=== PATIENT | female | born 1980 | race Caucasian/White ===

== ENCOUNTER → 2023-03-12 | Outpatient (CLI) | payer OTHER, SELFPAY ==
[2023-03-12 12:32] LABS: Absolute Lymphocyte Count 1.54 X10^3/uL (0.83-4.51); Absolute Neutrophil Count 4.1 X10^3/uL (2.0-7.7); Basophil# 0.02 X10^3/uL; Basophil% 0.3 % (0-1); Eosinophil# 0.05 X10^3/uL; Eosinophils% 0.8 % (0-5); Hematocrit 39.9 % (37-47); Hemoglobin 11.8 g/dL (12.0-15.0); Lymphocyte # 1.54 X10^3/ul (0.83-4.51); Lymphocyte % 25.2 % (19-41); Mean Corp Hgb Conc 29.6 g/dL (32-36); Mean Corpuscular Hgb 23.7 pg (27.0-32.0); Mean Corpuscular Volume 80.1 fL (81-99); Mean Platelet Vol. 11.1 fl (6.2-12.0); Monocyte# 0.34 X10^3/uL; Monocyte% 5.6 % (0-10); NRBC Flagged by Analyzer 0 % (0-5); Neutrophil # 4.13 X10^3/uL (2.7-7.7); Neutrophil % 67.8 % (47-70); Platelet Count 294 K/mm3 (150-450); RBC Distribution Width CV 14.1 % (11.6-14.6); RBC Distribution Width SD 40.5 fl (35.1-43.9); Red Blood Count 4.98 M/mm3 (4.2-5.4); White Blood Count 6.1 K/mm3 (4.4-11.0)
[2023-03-12 12:49] LABS: Erythrocyte Sedimentation Rate 3 mm/hr (0-30)
[2023-03-12 13:34] LABS: Hemoglobin A1c 5.1 % (3.8-5.6)
[2023-03-12 13:43] LABS: AST(SGOT) 12 U/L (15-37); Alanine Aminotransfer ALT/SGPT 20 U/L (13-56); Albumin, Serum 3.6 g/dL (3.2-5.0); Alkaline Phosphatase 70 U/L (45-117); Amylase 87 U/L (25-115); Anion Gap 4 (5-15); BUN 9 mg/dL (7-18); BUN/Creat Ratio 10.8 RATIO (10-20); CRP 7.47 mg/L (0.0-3.0); Calcium,Total 8.7 mg/dL (8.5-10.1); Chloride 108 mmol/L (98-107); Creatinine, Serum 0.84 mg/dL (0.55-1.02); EST Glomerular Filtration Rate 80 mL/min (>60); Est Glom Filt Rate - Afr Amer 97 mL/min (>60); Globulin 3.6 g/dL (2.2-4.2); Glucose 106 mg/dL (74-106); Lipase 38 U/L (13-75); Potassium 3.7 mmol/L (3.5-5.1); Protein, Total 7.2 g/dL (6.4-8.2); Sodium Level 138 mmol/L (136-145); Thyroid Stim Hormone (TSH) 0.78 uIU/mL (0.358-3.74)
[2023-03-13 15:08] LABS: Anti-Centromere B Ab <0.2 AI (0.0-0.9); Anti-Chromatin <0.2 AI (0.0-0.9); Anti-Jo <0.2 AI (0.0-0.9); Anti-Scleroderma-70 AB <0.2 AI (0.0-0.9); Anti-dsDNA Ab <1 IU/mL (0-9); RNP Ab <0.2 AI (0.0-0.9); SJOGREN'S Anti-SS-A test 0.2 AI (0.0-0.9); SJOGREN'S Anti-SS-B test < 0.2 AI (0.0-0.9); Smith Ab <0.2 AI (0.0-0.9)
[2023-03-15 21:07] LABS: Albumin 3.9 g/dL (2.9-4.4); Alpha-1-Globulins 0.3 g/dL (0.0-0.4); Alpha-2-Globulins 0.7 g/dL (0.4-1.0); Cytoplasmic Ab (C-ANCA) <1:20 titer (Neg:<1:20); Endomysial Antibody IgA Negative (Negative); Gamma Globulin 0.9 g/dL (0.4-1.8); Immunoglobulin A 127 mg/dL (87-352); Immunoglobulin E 4 IU/mL (6-495); Immunoglobulin G 950 mg/dL (586-1602); Immunoglobulin M 48 mg/dL (26-217); PROEL- TOTAL PROTEIN 6.7 g/dL (6.0-8.5); Perinuclear Ab (P-ANCA) <1:20 titer (Neg:<1:20); t-Transglutaminase IgA <2 U/mL (0-3)
== END | disposition home or self-care (01) ==
PROVIDERS: PCP Physician Assistant; Visit Provider Internal Medicine Gastroenterology
DX: R10.9 Unspecified abdominal pain (principal); K21.9 Gastro-esophageal reflux disease without esophagitis
CPT/HCPCS: 36415; 80053; 82150; 82784; 82785; 83036; 83516; 83690; 84165; 84443; 85025; 85652; 86140; 86225; 86235; 86255; 86256; 86334

== ENCOUNTER 2023-05-21 06:48 | Day surgery (SDC) | payer OTHER, SELFPAY ==
[2023-05-21 07:14] VITALS: BP 99/54; PULSE 57; RESP 16; TEMP 36.1; O2SAT 95; BMI 33.7
[2023-05-21] MEDS: Lactated Ringers 1,000 ML 15 ML IV (07:17)
[2023-05-21 07:18] LABS: Internal QC Validated? YES +Cl - CLEAR BKGD; Pregnancy, Urine Negative Negative; Record Kit Lot#,Urine Preg HCG0000667200
--- NOTE | 2023-05-21 07:45 | EGD_PTH ---
PATIENT: SAMANTA HUNT LOC: [facility] U#:[id number] AGE/SX: 43/F ROOM: RE05/21/[address]: Dr. Toro Nugent DO : 1980 BED: DIS: 05/21/2023 SPEC #: [id number] RECD: 05/21/23 11:03 STATUS: JEISON RAISA #: [id number] LAUREANO: 05/21/23 07:[address]: Toro Nugent DEPT: SURGICAL PATHOLOGY RECD BY: Marisela Blanco ENTERED: 05/21/23 12:02 SP TYPE: EGD BIOPSY OT DR: JAVAN Delgado Tissues: A - Duodenum, NOS B - Esophagus, NOS Procedures: Special Stain Group II Surgery Specimen Level IV Alcian Blue/PAS (control) HEADER OPERATION: EGD, PH probe with biopsy PRE-OP DIAGNOSIS: Abdominal pain, GERD, TISSUE SUBMITTED: A - Duodenum biopsy, B - Distal esophagus biopsy MICROSCOPIC DIAGNOSIS A. Duodenum, biopsy: A fragment of duodenal mucosa, no pathologic diagnosis. B. Distal esophagus, biopsy: Fragments of gastroesophageal mucosa with chronic inflammation. Intestinal metaplasia (goblet cell metaplasia) not identified. See comment. JAIMIE:los 05/22/2023 COMMENT B. Alcian blue/PAS stain with matched control is used in the evaluation of the specimen. MICROSCOPIC DESCRIPTION Slides are reviewed. GROSS DESCRIPTION A - Received in fixative is one container labeled with the patient's name and designated duodenum biopsy. The specimen consists of one irregular fragment of light beyer soft tissue that measures 0.4 x 0.3 x 0.1 cm. The specimen is totally submitted in one cassette. B - Received in fixative is one container labeled with the patient's name and designated distal esophagus biopsy. The specimen consists of multiple irregular fragments of light beyer soft tissue that in aggregate measure 1.2 x 0.3 x 0.1 cm. The specimen is totally submitted in one cassette. / JAIMIE:los 05/21/2023 TC:3 CPT: 32924 x2, 22379
--- NOTE | 2023-05-21 07:52 | PCM.HP.BLA ---
History and Physical Date of Admission: 05/21/23 43 F who presents to the office today for initial consult. PMH HPV+, anxiety/depression, arthritis/polyarthralgia/fibromyalgia. GI Hx Kolb?s esophagus, GERD, hiatal hernia, abdominal bloating? PCP OV 10.07.22 noting history of Kolb?s esophagus. PPI continues but is symptomatic if dose missed.? ? OV 03.12.23 Pt states life long hx of GERD. Sx increased in 2020. Cholecystectomy mid 2020. EGD 08.20.21 at [facility] noting barretts and moderate HH. Has changed diet and was most recently put on Pantoprazole 40mg BID. Helpful for stomach cramps but still continues to have HB with reflux. Bowels are normal and consistent. Exam Const General: cooperative and comfortable Nutritional Appearance: average body habitus and well nourished HENNH Head: normal to inspection Ears: hearing grossly normal bilaterally Nose: external nose normal Face and sinus: normal facial exam Mouth: oral mucosae normal Throat: posterior oropharynx normal Eyes General: appearance normal, both eyes and all related structures Neck Neck: normal visual inspection Chest Chest palpation & inspection: normal inspection of the chest and normal palpation of entire chest wall Resp Effort & Inspection: normal respiratory effort Auscultation: Bilateral: Clear to Auscultation Cardio Palpation: normal PMI Rate: regular rate Rhythm: regular rhythm GI Inspection: normal to inspection Auscultation: normal bowel sounds Percussion: normal to percussion Palpation: no hepatosplenomegaly Skin General: no rashes or lesions noted Neuro General: patient alert Extrem General: normal to inspection Psych Affect: normal affect Quality Reporting Tobacco Screening ([facility] 138) Smoking Status: Current every day smoker Assessment and Plan Assessment and Plan (1) Abdominal pain: Status: Acute Qualifiers: Abdominal location: epigastric Qualified Code(s): R10.13 - Epigastric pain (2) GERD (gastroesophageal reflux disease): Status: Acute Qualifiers: Esophagitis presence: without esophagitis Qualified Code(s): K21.9 - Gastro-esophageal reflux disease without esophagitis Plan: 43-year-old with longstanding history of gastroesophageal reflux disease diagnosed at 16 years old. She has had refractory disease to 40 mg of omeprazole twice a day and currently pantoprazole 40 mg twice a day and regarding her reflux disease. 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 She was also noted did have a small sliding hiatal hernia without any underlying Osmar's erosions, Nallely-Freedman tear or any motility problems associated with that. She said that she had an upper GI study that also showed a hiatal hernia. On her upper endoscopy there was no note of inflammation, portal gastropathy, gastric antral vascular ectasia or H. pylori infection in her stomach. There was also no note of villous atrophy in the small bowel or any signs of eosinophilia in the stomach, duodenum or esophagus. She does smoke cigarettes, but has been cutting down and she is also been avoiding spicy foods, alcohol, chocolate and coffee. She gets intermittent right upper quadrant pain and she is postcholecystectomy. This also comes along with bloating. The differential diagnosis for her symptoms does include nonerosive reflux disease, eosinophilic esophagitis, irritable bowel syndrome, celiac disease, hypergastrinemia secondary to PPI therapy. She should undergo an upper endoscopy with [place] pH study, possible esophageal motility and a gastric emptying study. She should also get a HIDA scan to see if there is any signs of bile acid reflux. She will get blood work today to see if there is any underlying autoimmune disease contributing to poor motility of the upper GI tract and to see if there is any associated food allergy. Orders: Orders Allergen, Food Profile 14 Today K21.9 - Gastro-esophageal reflux disease without esophagitis, R10.9 - Unspecified abdominal pain JACKI + Protein Elect, Serum Today K21.9 - Gastro-esophageal reflux disease without esophagitis, R10.9 - Unspecified abdominal pain CBC W/Diff, Automated Today K21.9 - Gastro-esophageal reflux disease without esophagitis, R10.9 - Unspecified abdominal pain ANCA Today K21.9 - Gastro-esophageal reflux disease without esophagitis, R10.9 - Unspecified abdominal pain Celiac Disease Profile Today K21.9 - Gastro-esophageal reflux disease without esophagitis, R10.9 - Unspecified abdominal pain CRP Today K21.9 - Gastro-esophageal reflux disease without esophagitis, R10.9 - Unspecified abdominal pain Erythrocyte Sed Rate Today K21.9 - Gastro-esophageal reflux disease without esophagitis, R10.9 - Unspecified abdominal pain Immunoglobulin A Today K21.9 - Gastro-esophageal reflux disease without esophagitis, R10.9 - Unspecified abdominal pain Immunoglobulin E Today K21.9 - Gastro-esophageal reflux disease without esophagitis, R10.9 - Unspecified abdominal pain Immunoglobulin G Today K21.9 - Gastro-esophageal reflux disease without esophagitis, R10.9 - Unspecified abdominal pain Immunoglobulin M Today K21.9 - Gastro-esophageal reflux disease without esophagitis, R10.9 - Unspecified abdominal pain Comprehensive Metabolic Profil Today K21.9 - Gastro-esophageal reflux disease without esophagitis, R10.9 - Unspecified abdominal pain Amylase Today K21.9 - Gastro-esophageal reflux disease without esophagitis, R10.9 - Unspecified abdominal pain Lipase Today K21.9 - Gastro-esophageal reflux disease without esophagitis, R10.9 - Unspecified abdominal pain Hemoglobin A1c Today K21.9 - Gastro-esophageal reflux disease without esophagitis, R10.9 - Unspecified abdominal pain JAS Comprehensive Panel Today K21.9 - Gastro-esophageal reflux disease without esophagitis, R10.9 - Unspecified abdominal pain Thyroid Stim Hormone (TSH) Today K21.9 - Gastro-esophageal reflux disease without esophagitis, R10.9 - Unspecified abdominal pain Gastric Emptying Study Today K21.9 - Gastro-esophageal reflux disease without esophagitis, R10.9 - Unspecified abdominal pain Hepatobilliary Imaging Today K21.9 - Gastro-esophageal reflux disease without esophagitis, R10.9 - Unspecified abdominal pain I have examined the patient and the H&P has been reviewed. There are no clinical changes since date of exam.
[2023-05-21 08:15] VITALS: BP 99/54; PULSE 55; RESP 18; TEMP 36.4; O2SAT 98
[2023-05-21 08:20] VITALS: BP 105/61; BP 99/54; PULSE 50; RESP 16; O2SAT 99
--- NOTE | 2023-05-21 08:21 | OP.CCLET_ITS ---
05/21/2023 Jelena Durham Re : Upper GI endoscopy procedure for Kerrie Durham This procedure was performed on May. My impressions and recommendations are as follows: Impressions : - Z-line irregular, 38 cm from the incisors. Biopsied. - A few gastric polyps. - Chronic duodenitis. Biopsied. - The AMAYA pH capsule was positioned 38 cm from the incisors, which was 6 cm proximal to the GE junction. Recommendations : - Discharge patient to home. - Resume previous diet. - Continue present medications. - Await pathology results. My findings are described in the full procedure note, which is enclosed. If I can be of further assistance, please feel free to contact me at . Sincerely, Toro Nugent, 05/21/2023 8:21:02 AM This report has been signed electronically.
--- NOTE | 2023-05-21 08:21 | OP.EGD_ITS ---
Patient Name: Kerrie Quiroz Procedure Date: 05/21/2023 7:58 AM Date of : 1980 Age: 43 Procedure: Upper GI endoscopy Indications: Epigastric abdominal pain, Heartburn Providers: Toro Nugent DO Referring MD: Jelena Durham Medicines: Monitored Anesthesia Care Patient Profile: Patient has symptoms of chronic abdominal cramping, chronic abdominal distention, chronic chest pain and chronic heartburn. Complications: No immediate complications. Procedure: Pre-Anesthesia Assessment: - Prior to the procedure, a History and Physical was performed, and patient medications and allergies were reviewed. The patient is competent. The risks and benefits of the procedure and the sedation options and risks were discussed with the patient. All questions were answered and informed consent was obtained. Patient identification and proposed procedure were verified by the physician in the pre-procedure area. Mental Status Examination: alert and oriented. Airway Examination: normal oropharyngeal airway and neck mobility. Prophylactic Antibiotics: The patient requires prophylactic antibiotics. Prior Anticoagulants: The patient has taken no anticoagulant or antiplatelet agents. ASA Grade Assessment: II - A patient with mild systemic disease. After reviewing the risks and benefits, the patient was deemed in satisfactory condition to undergo the procedure. The anesthesia plan was to use monitored anesthesia care (MAC). Immediately prior to administration of medications, the patient was re-assessed for adequacy to receive sedatives. The heart rate, respiratory rate, oxygen saturations, blood pressure, adequacy of pulmonary ventilation, and response to care were monitored throughout the procedure. The physical status of the patient was re-assessed after the procedure. After obtaining informed consent, the endoscope was passed under direct vision. Throughout the procedure, the patient's blood pressure, pulse, and oxygen saturations were monitored continuously. The Endoscope was introduced through the mouth, and advanced to the second part of duodenum. The upper GI endoscopy was accomplished without difficulty. The patient tolerated the procedure well. Scope In: 8:01:53 AM Scope Out: 8:09:25 AM Total Procedure Duration Time 0 hours 7 minutes 32 seconds Findings: The Z-line was irregular and was found 38 cm from the incisors. Biopsies were taken with a cold forceps for histology. Verification of patient identification for the specimen was done. The AMAYA capsule with delivery system was introduced through the mouth and advanced into the esophagus, such that the AMAYA pH capsule was positioned 38 cm from the incisors, which was 6 cm proximal to the GE junction. Suction was applied to the well of the AMAYA pH capsule to suck in the adjacent mucosa of the esophagus using the external vacuum pump set at a minimum vacuum pressure of 550 mmHg for 30 seconds. The AMAYA pH capsule was then deployed by depressing the plunger on top of the handle to advance the locking pin into the mucosa, thereby attaching the capsule to the esophagus. The plunger was then rotated a quarter turn clockwise to release the capsule from the delivery system. The delivery system was then withdrawn. Endoscopy was utilized for probe placement and diagnostic evaluation. A few 5 mm hyperplastic polyps with no stigmata of recent bleeding were found in the gastric fundus. Patchy moderate inflammation characterized by congestion (edema) and erythema was found in the duodenal bulb and in the first portion of the duodenum. Biopsies were taken with a cold forceps for histology. Verification of patient identification for the specimen was done. Estimated blood loss was minimal. Impression: - Z-line irregular, 38 cm from the incisors. Biopsied. - A few gastric polyps. - Chronic duodenitis. Biopsied. - The AMAYA pH capsule was positioned 38 cm from the incisors, which was 6 cm proximal to the GE junction. Recommendation: - Discharge patient to home. - Resume previous diet. - Continue present medications. - Await pathology results. Procedure Code(s): --- Professional --- 94032, Esophagogastroduodenoscopy, flexible, transoral; with biopsy, single or multiple CPT copyright 2021 [employer]. All rights reserved. The codes documented in this report are preliminary and upon human service coordinator review may be revised to meet current compliance requirements. Toro Nugent DO 05/21/2023 8:21:02 AM This report has been signed electronically. Number of Addenda: 0 Note Initiated On: 05/21/2023 7:58 AM
[2023-05-21 08:25] VITALS: BP 99/54; PULSE 51; RESP 18; TEMP 36.4; O2SAT 100
[2023-05-21 08:46] VITALS: BP 99/54
== END 2023-05-21 08:53 | disposition home or self-care (01) ==
LOC: EN 06:48 → AC 06:50
PROVIDERS: Anesthesiology; PCP Physician Assistant; Referring Provider Physician Assistant; Visit Provider Internal Medicine Gastroenterology
PROC: (CPT 43235; principal; 2023-05-21 07:40)
DX: K21.9 Gastro-esophageal reflux disease without esophagitis (principal); K29.80 Duodenitis without bleeding; K31.7 Polyp of stomach and duodenum; K22.70 Barrett's esophagus without dysplasia; K44.9 Diaphragmatic hernia without obstruction or gangrene; F17.210 Nicotine dependence, cigarettes, uncomplicated; G89.29 Other chronic pain; Z90.49 Acquired absence of other specified parts of digestive tract; Z79.899 Other long term (current) drug therapy
CPT/HCPCS: 43239; 91035; 81025; 88305; 88313; J7120; J2405

== ENCOUNTER → 2023-09-10 | Outpatient (CLI) | payer OTHER, SELFPAY ==
[2023-09-10 10:22] LABS: Mucous, Urine 0 SEEN /hpf (<or=2+); Red Blood Cells-Urine 0 SEEN /hpf (0-5)
[2023-09-10 10:47] LABS: Color, Urine Yellow (Yellow); Glucose, Dipstick Normal (Normal); Ketone-Dipstick Negative (Negative); Leukocyte Esterase-Dipstick Negative /ul (Negative); Nitrite-Dipstick Negative (Negative); Occult Blood-Urine Negative /ul (Negative); Protein-Dipstick Negative (Negative); Urine Bilirubin Dipstick Negative (Negative); Urine Clarity Clear (Clear); Urine Urobilinogen Normal (Normal); Urine pH 6.5 (5.0 - 8.0)
[2023-09-10 10:57] LABS: Bacteria 1+ /hpf (None Seen); Squamous Epithelial Cells - UA 0-5 SEEN /hpf (5-10); White Blood Cells 0-5 SEEN /hpf (0-5)
[2023-09-10 11:19] LABS: PTHIN 44.4 pg/mL (18.4-80.1)
[2023-09-10 12:14] LABS: CPK Total, Creatine Kinase 77 U/L (26-192); CRP 6.16 mg/L (0.0-3.0); Thyroid Stim Hormone (TSH) 0.71 uIU/mL (0.358-3.74)
[2023-09-10 12:52] LABS: Hemoglobin A1c 5.2 % (3.8-5.6)
[2023-09-14 15:07] LABS: Myoglobin, Urine 2 ng/mL (0-13)
[2023-09-15 21:06] LABS: ACCA 0 units (0-90); ALCA 2 units (0-60); ALDOSTERONE/RENIN RATIO 6.4 (0.0-30.0); AMCA 4 units (0-100); Aldolase 2.5 U/L (3.3-10.3); Aldosterone, Serum 1.7 ng/dL (0.0-30.0); Anti-Parietal Cell AB, QN 5.5 Units (0.0-20.0); Chromogranin A 87.4 ng/mL (0.0-101.8); Gastrin, Serum 330 pg/mL (0-115); Intrinsic Factor Ab 0.9 AU/mL (0.0-1.1); Renin, Plasma 0.264 ng/mL/hr (0.167-5.380); gASCA 25 units (0-50)
== END | disposition home or self-care (01) ==
PROVIDERS: PCP Physician Assistant; Visit Provider Internal Medicine Gastroenterology
DX: R10.9 Unspecified abdominal pain (principal); K21.9 Gastro-esophageal reflux disease without esophagitis
CPT/HCPCS: 36415; 81001; 82085; 82088; 82533; 82550; 82941; 83036; 83516; 83874; 83970; 84244; 84443; 86036; 86140; 86316; 86340; 86671

== ENCOUNTER 2024-11-18 08:06 | Day surgery (SDC) | payer OTHER, SELFPAY ==
[2024-11-18 08:24] VITALS: RESP 16; TEMP 36.9
[2024-11-18 08:27] VITALS: BP 117/74; PULSE 70; O2SAT 100
[2024-11-18] MEDS: Lidocaine Jelly 2% 20 ML Syringe (URO-JET) 1 APPLIC (08:29)
--- OUTSIDE RECORDS SUMMARY | 2024-11-18 08:29 | XMS RPT_ITS | CCD ---
Author Organization [facility] Care Team Providers Care Lens Marker Name Role Phone Dr. Geoff Mcleod Primary Care Provider Dr. Geoff Mcleod Referring Provider Friend, Dr. Engel Attending Provider Dr. Geoff Mcleod Primary Care Provider Dr. Geoff Mcleod Referring Provider Friend, Dr. Engel Attending Provider JAVAN Grande Primary Care Provider JAVAN Grande Referring Provider Friend, Dr. Engel Other Provider Jelena Durham PA-C Unavailable Herminio LOPEZ, Jelena Myers Unavailable Nikolai GUPTA, Dr. Ishmael Osei Unavailable Gastroenterology Provider Unavailable Unavai lable Plastic Surgery Provider Unavailable Unavail able General Surgery Provider Unavailable Unavail able [facility] Unavailable Rheumatolgy Provider Unavailable Unavailable Carlos RAMOS, Micaela Unavailable Geoff Mcleod MD Unavailable Chaya Lyons LPN Unavailable Unavailable [place] LOPEZ, Josiane Ash Unavailable [phone] Dewayne LOPEZ, Aristides Estrada Unavailable King KESHAWN, Pollo Hardy Unavailable Aayush LONGON, Guilherme Unavailable Unavailable Wilmar LONGON, Marley Jose Unavailable Unavai lable Aleksandra PAINT BRUSH MAKER, Mayte Montejo Unavailable Unavailab ginger Porter LPN, Pauline Unavailable Unavailabl e Unavailable Unavailable JAVAN Grande Primary Care Provider JAVAN Grande Referring Provider Dr. Toro Nugent Attending Provider Dr. Toro Nugent Other Provider and Reconstructive Surgery, [facility] Unavailable Will PAINT BRUSH MAKER, Cande Unavailable Unavailabl e Farhat PAINT BRUSH MAKER, Johnathon Unavailable Unavailable BROWNGEOFF Consulting Unavailable DURHAM, JELENA J Admitting Unavailable DURHAM, JELENA J Primary Care Unavailable DURHAM, JELENA J Attending Unavailable PROVIDER, UNKNOWN Consulting Unavailable PROVIDER, UNKNOWN Consulting Unavailable PROVIDER, UNKNOWN Consulting Unavailable DURHAM, JELENA J Primary Care Unavailable DURHAM, JELENA J Attending Unavailable DURHAM, JELENA J Admitting Unavailable JENNIFFER, GEOFF Consulting Unavailable PROVIDER, UNKNOWN Consulting Unavailable PROVIDER, UNKNOWN Consulting Unavailable PROVIDER, UNKNOWN Consulting Unavailable DURHAM, JELENA J Primary Care Unavailable DURHAM, JELENA J Attending Unavailable DURHAM, JELENA J Admitting Unavailable BROWN, GEOFF Consulting Unavailable PROVIDER, UNKNOWN Consulting Unavailable PROVIDER, UNKNOWN Consulting Unavailable PROVIDER, UNKNOWN Consulting Unavailable Jelena Grande Primary Care Provider Jelena Grande Referring Provider Friend Dr. Toro MENDES Attending Provider Jelena Grande Referring Unavailable Toro Nugent Attending Unavailable Jelena Grande Primary Care Unavailable FriendToro Attending Unavailable Durham PA, Jelena Primary Care Unavailable Allergies Allergy Classification Reported Allergen(s) Allergy Type Date of Onset Reaction(s) Facility (4 sources) Cefixime Drug Allergy 3 [facility] Comment on above: cough (3 sources) carbinoxamine Drug Allergy 3 [facility] Comment on above: UNSURE (3 sources) Pseudoephedrine Drug Allergy 3 [facility] Comment on above: UNSURE (20 sources) Rondex *COUGH/COLD/ALLERGY* [facility] (20 sources) Suprax *CEPHALOSPORINS* [facility] (1 source) Cefixime Drug Allergy [facility] (1 source) Cefixime Drug Allergy [facility] (1 source) Chlorpheniramine / Phenylephrine Drug Allergy [facility] (1 source) Penicillins Drug allergy (disorder) [facility] (1 source) carbinoxamine Drug Allergy 3 [facility] (1 source) Cefixime Drug Allergy 3 [facility] (1 source) Pseudoephedrine Drug Allergy 3 [facility] Medications Current Medications Medication Drug Class(es) Dates Sig (Normalized) Sig (Original) busPIRone hydrochloride 10 mg oral tablet (20 sources) Start: 11-08-2024 take 1 tablet by mouth twice daily Buspirone 10 mg tablet Active 10 mg PO TWICE A DAY November 08, 2024 12:00am Start: 11-01-2024 busPIRone 10 m g tablet ; 1 (one) tablet BID for 0 days Quantity: 60 {Tablet} Refills: 1 Ordered: 01-Nov-2024 JESSICA Durham Start: 01-Nov-2024 Start: 09-23-2024 busPIRone 10 m g tablet ; 1 (one) tablet BID for 0 days Quantity: 60 {Tablet} Refills: 1 Ordered: 23-Sep-2024 JESSICA Durham Start: 23-Sep-2024 Start: 08-23-2024 busPIRone 5 mg tablet ; 1 (one) tablet BID for 0 days Quantity: 60 {Tablet} Refills: 1 Ordered: 23-Aug-2024 JESSICA Durham Start: 23-Aug-2024 Start: 06-28-2024 busPIRone 5 mg tablet ; 1 (one) tablet BID for 0 days Quantity: 60 {Tablet} Refills: 1 Ordered: 28-Jun-2024 JESSICA Durham Start: 28-Jun-2024 Start: 05-03-2024 busPIRone 5 mg tablet ; 1 (one) tablet BID for 0 days Quantity: 60 {Tablet} Refills: 1 Ordered: 03-May-2024 JESSICA Durham Start: 03-May-2024 Start: 03-08-2024 busPIRone 5 mg tablet ; 1 (one) tablet BID for 0 days Quantity: 60 {Tablet} Refills: 1 Ordered: 08-Mar-2024 JESSICA Buchanan Start: 08-Mar-2024 Start: 01-05-2024 busPIRone 5 mg tablet ; 1 (one) tablet BID for 0 days Quantity: 60 {Tablet} Refills: 1 Ordered: 05-Jan-2024 MD Geoff Mcleod Start: 05-Jan-2024 Start: 11-03-2023 busPIRone 5 mg tablet ; 1 (one) tablet BID for 0 days Quantity: 60 {Tablet} Refills: 1 Ordered: 03-Nov-2023 JESSICA Durham Start: 03-Nov-2023 Start: 09-09-2023 busPIRone 5 mg tablet ; 1 (one) tablet BID for 0 days Quantity: 60 {Tablet} Refills: 1 Ordered: 09-Sep-2023 JESSICA Durham Start: 09-Sep-2023 escitalopram 20 mg oral tablet (20 sources) Serotonin Reuptake Inhibitor Start: 11-08-2024 take 10 mg by mouth once daily Escitalopram Oxalate (Lexapro) 20 mg tablet Active 10 mg PO DAILY November 08, 2024 8:10am Start: 11-05-2022 End: 11-08-2024 Lexapro 20 mg tablet ; 1 (on e) Tablet daily for 0 days Quantity: 90 {Tablet} Refills: 1 Ordered: 05-Apr-2024 JESSICA Durham Start: 05-Apr-2024 pantoprazole 40 mg delayed release oral tablet (20 sources) Proton Pump Inhibitor Start: 03-08-2024 pantoprazole 40 mg tablet,delayed release ; 1 (one) Tablet BID for 0 days Quantity: 60 {Tablet} Refills: 5 Ordered: 23-Sep-2024 JESSICA Durham Start: 23-Sep-2024 Start: 08-27-2023 pantoprazole 4 0 mg tablet,delayed release ; 1 (one) Tablet BID for 0 days Quantity: 60 {Tablet} Refills: 5 Ordered: 09-Sep-2023 JESSICA Durham Start: 09-Sep-2023 Start: 08-24-2023 pantoprazole 4 0 mg tablet,delayed release ; 1 (one) Tablet BID for 0 days Quantity: 60 {Tablet} Refills: 0 Ordered: 24-Aug-2023 MD Geoff Mcleod Start: 24-Aug-2023 Start: 11-05-2022 take 1 tablet by samuel th twice daily Pantoprazole 40 mg tablet,delayed release (DR/EC) Active 40 mg PO TWICE A DAY November 05, 2022 12:00am take 1 tablet by samuel th once daily PROTONIX, 20MG (Oral Tablet Delayed Release) ; 1 daily (20 MG) Status: Inactive Completed/Discontinued Medications Medication Drug Class(es) Dates Sig (Normalized) Sig (Original) acetaminophen 325 mg / HYDROcodone bitartrate 5 mg oral tablet (20 sources) Opioid Agonist Start: 03-25-2013 End: 11-24-2014 take 1 tablet by mouth every six hours as needed for pain NORCO, 5-325MG (Oral Tablet) ; 1 Tablet Tablet q 6hrs prn pain for 0 days Quantity: 40 {Tablet} Refills: 0 Ordered: 24-Nov-2014 RACHEL Porter Start: 25-Mar-2013 End: 24-Nov-2014 Status: Inactive acetaminophen 325 mg / oxyCODONE hydrochloride 5 mg oral tablet (20 sources) Opioid Agonist Start: 06-30-2016 End: 11-14-2016 take 1 tablet by mouth every six hours as needed for pain Percocet 5-325 MG Oral Tablet ; 1 (one) Tablet q 6hrs prn pain for 0 days Quantity: 30 {Tablet} Refills: 0 Ordered: 14-Nov-2016 RACHEL Porter Start: 30-Jun-2016 End: 14-Nov-2016 Status: Inactive Comments: OARRS: 06/30/16 Comment on above: OARRS: 06/30/16 [id number] 200 actuat albuterol 0.09 mg/actuat metered dose inhaler (20 sources) beta2-Adrenergic Agonist Start: 02-15-2016 End: 06-18-2016 take 2 puff(s) by inhalation every four to six hours as needed ProAir HFA 108 (90 Base) MCG/ACT Inhalation Aerosol Solution ; 2 (two) puffs every 4-6 hours as needed for 0 days Quantity: 1 {Inhaler} Refills: 0 Ordered: 18-Jun-2016 Start: 15-Feb-2016 End: 18-Jun-2016 Status: Inactive Comments: Medication taken as needed. Comment on above: Medication taken as needed. ALPRAZolam 0.5 mg oral tablet (20 sources) Benzodiazepine Start: 01-09-2018 End: 05-28-2018 take 1 tablet by mouth three times daily as needed ALPRAZolam 0.5 MG Oral Tablet ; 1 (one) Tablet three times daily, as needed for 0 days Quantity: 15 {Tablet} Refills: 0 Ordered: 28-May-2018 JESSICA Durham Start: 09-Jan-2018 End: 28-May-2018 Status: Inactive Comments: Medication taken as needed. OAS 01/09/2018wm Comment on above: Medication taken as needed. OAS 01/09/2018wm amoxicillin 875 mg / clavulanate 125 mg oral tablet (20 sources) Penicillin-class Antibacterial Start: 03-10-2016 End: 03-19-2024 amoxicillin 875 mg-potassium clavulanate 125 mg tablet ; 1 (one) tablet BID for 10 days Quantity: 20 {Tablet} Refills: 0 Ordered: 09-Mar-2024 JESSICA Durham Start: 09-Mar-2024 End: 19-Mar-2024 Status: Inactive Comment on above: Take with food Discontinued by [facility] vendor. azithromycin 250 mg oral tablet (20 sources) Macrolide Antimicrobial Start: 04-08-2023 End: 09-09-2023 azithromycin 250 mg tablet ; 2 (two) tablet on day 1 then 1 tablet daily on days 2-5 for 0 days Quantity: 6 {Tablet} Refills: 0 Ordered: 09-Sep-2023 RACHEL Lake Start: 08-Apr-2023 End: 09-Sep-2023 Status: Inactive Start: 02-15-2016 End: 06-18-2016 Zithromax Z-Charlie 250 MG Oral Tablet ; 2 (two) Tabs day one, then one daily for 4 days for 0 days Quantity: 1 {Package} Refills: 0 Ordered: 18-Jun-2016 Start: 15-Feb-2016 End: 18-Jun-2016 Status: Inactive cephalexin 500 mg oral capsule (20 sources) Cephalosporin Antibacterial Start: 12-11-2014 End: 12-20-2014 take 1 capsule by mouth three times daily CEPHALEXIN, 500MG (Oral Capsule) ; 1 Capsule three times daily for 10 days Quantity: 30 {Capsule} Refills: 0 Ordered: 20-Dec-2014 RACHEL Urban Start: 11-Dec-2014 End: 20-Dec-2014 Status: Inactive citalopram 20 mg oral tablet (20 sources) Serotonin Reuptake Inhibitor Start: 11-14-2016 End: 02-13-2017 take 0.5 tablet by mouth once daily, then take 1 tablet by mouth once daily CeleXA 20 MG Oral Tablet ; 1/2 Tablet Tablet daily x 1 week and then increase to 1 tablet daily for 0 days Quantity: 30 {Tablet} Refills: 1 Ordered: 13-Feb-2017 RACHEL Porter Start: 14-Nov-2016 End: 13-Feb-2017 Status: Inactive cyclobenzaprine hydrochloride 10 mg oral tablet (20 sources) Muscle Relaxant Start: 12-04-2016 End: 05-28-2018 take 1 tablet by mouth three times daily as needed for muscle spasms Cyclobenzaprine HCl 10 MG Oral Tablet ; 1 (one) Tablet Tablet tid prn muscle spasm for 0 days Quantity: 15 {Tablet} Refills: 0 Ordered: 28-May-2018 RACHEL Urban Start: 04-Dec-2016 End: 28-May-2018 Status: Inactive Comments: may cause drowsiness; take seperately from prozac Comment on above: may cause drowsiness ; take seperately from prozac DULoxetine 30 mg delayed release oral capsule (20 sources) Serotonin and Norepinephrine Reuptake Inhibitor Start: 06-02-2018 End: 06-30-2018 take 2 capsules by mouth once daily, then take 3 capsules by mouth once daily Cymbalta 30 MG Oral Capsule Delayed Release Particles ; 1 (one) Capsule DR Part daily for 0 days Quantity: 30 {Capsule} Refills: 2 Ordered: 30-Jun-2018 JESSICA Durham Start: 02-Jun-2018 End: 30-Jun-2018 Status: Inactive Comments: to be taken along with the 60mg capsule to total 90mg daily Start: 05-28-2018 End: 06-30-2018 Cymbalta 60 MG Oral Capsule Delayed Release Particles ; 1 (one) Capsule DR Part daily for 0 days Quantity: 30 {Capsule} Refills: 5 Ordered: 30-Jun-2018 JESSICA Durham Start: 28-May-2018 End: 30-Jun-2018 Status: Inactive Comment on above: to be taken along wi th the 60mg capsule to total 90mg daily Echinacea Comb/Killian Seal Oral Capsule (20 sources) take 2 capsules by mouth once daily Echinacea Comb/Killian Seal Oral Capsule ; 2 qd Status: Inactive FLUoxetine 20 mg oral tablet (20 sources) Serotonin Reuptake Inhibitor Start: 017 End: take 1 tablet by mouth once daily FLUoxetine HCl 20 MG Oral Tablet ; 1 (one) Tablet daily for 0 days Quantity: 30 {Tablet} Refills: 1 Ordered: 16-Feb-2017 RACHEL Porter Start: 04-Dec-2016 End: 16-Feb-2017 Status: Inactive gabapentin 300 mg oral capsule (20 sources) Anti-epileptic Agent Start: 020 End: take 1 capsule by mouth twice daily Gabapentin 300 MG Oral Capsule ; 1 (one) Capsule BID for 0 days Quantity: 60 {Capsule} Refills: 5 Ordered: 07-Aug-2021 RACHEL Lake Start: 05-Dec-2019 End: 07-Aug-2021 Status: Inactive ibuprofen 800 mg oral tablet (20 sources) Nonsteroidal Anti-inflammatory Drug take 1 tablet by mouth three times daily Ibuprofen 800 MG Oral Tablet ; 1 tid (800 MG) Status: Inactive LORazepam 0.5 mg oral tablet (20 sources) Benzodiazepine Start: 022 End: 022 take 0.5-1 tablets by mouth twice daily as needed for anxiety LORazepam 0.5 MG Oral Tablet ; 1/2 to 1 Tablet BID prn anxiety for 30 days Quantity: 60 {Tablet} Refills: 0 Ordered: 12-Jun-2021 JESSICA Durham Start: 12-Jun-2021 End: 12-Jul-2021 Status: Inactive Comments: OARRS: 06/12/2021 Comment on above: OARRS: 06/12/2021 methylPREDNISolone 4 mg oral tablet (20 sources) Corticosteroid Start: 016 End: MEDROL, 4MG (Oral Tablet Therapy Pack) ; 1 Tab as directed for 6 days Quantity: 1 {Dose_Pack} Refills: 0 Ordered: 25-Dec-2015 JESSICA Durham Start: 25-Dec-2015 End: 31-Dec-2015 Status: Inactive omeprazole 40 mg delayed release oral capsule (20 sources) Proton Pump Inhibitor Start: 023 End: 023 take 1 capsule by mouth once daily Omeprazole 40 mg capsule,delayed release(DR/EC) Discontinued 40 mg PO DAILY November 05, 2022 12:00am November 05, 2022 2:25pm Start: 05-08-2022 End: 10-02-2022 take 1 capsule by mouth twice daily 30 minutes before mealtime Omeprazole 40 MG Oral Capsule Delayed Release ; 1 (one) Capsule twice daily 30 minutes before meal for 0 days Quantity: 60 {Capsule} Refills: 5 Ordered: 02-Oct-2022 JESSICA Durham Start: 08-May-2022 End: 02-Oct-2022 Status: Inactive Comments: Please cancel previous script Comment on above: Please cancel previo us script predniSONE 20 mg oral tablet (20 sources) Start: 12-05-19 17 End: 02-14-20 17 take 3 tablets by mouth once daily, then take 2 tablets by mouth once daily, then take 1 tablet by mouth once daily, then take 0.5 tablet by mouth once daily PredniSONE 20 MG Oral Tablet ; 1 (one) Tablet as directed for 0 days Quantity: 20 {Tablet} Refills: 0 Ordered: 13-Feb-2017 RACHEL Porter Start: 04-Dec-2016 End: 13-Feb-2017 Status: Inactive Comments: Take 3tabs qd for 3 days thenTake 2tabs qd for 3 days thenTake 1tab qd for 3 days thenTake 1/2tab qd for 4 days. Comment on above: Take 3tabs qd for 3 days thenTake 2tabs qd for 3 days thenTake 1tab qd for 3 days thenTake 1/2tab qd for 4 days. raNITIdine 150 mg oral capsule (20 sources) Histamine-2 Receptor Antagonist take 1 capsule by mouth twice daily RaNITidine HCl 150 MG Oral Capsule ; 1 two times daily (150 MG) Status: Inactive rifAXIMin 550 mg oral tablet (2 sources) Rifamycin Antibacterial Start: 09-10-19 End: 11-09-19 25 take 1 tablet by mouth three times daily Rifaximin (Xifaxan) 550 mg tablet Discontinued 550 mg PO THREE TIMES A DAY September 10, 2023 12:00am November 08, 2024 8:10am sucralfate 1000 mg oral tablet (20 sources) Aluminum Complex Start: 12-21-19 End: 12-31-19 15 take 1 tablet by mouth at bedtime CARAFATE, 1GM (Oral Tablet) ; 1 (one) Tablet ac and hs for 10 days Quantity: 40 {Tablet} Refills: 0 Ordered: 20-Dec-2014 MD Geoff Mcleod Start: 20-Dec-2014 End: 30-Dec-2014 Status: Inactive traMADol hydrochloride 50 mg oral tablet (20 sources) Opioid Agonist Start: 02-23-20 13 End: 11-25-19 15 take 1 tablet by mouth every four to six hours as needed ULTRAM, 50MG (Oral Tablet) ; 1 (one) Tablet every 4-6 hours as needed for 0 days Quantity: 40 {Tablet} Refills: 0 Ordered: 24-Nov-2014 RACHEL Porter Start: 22-Feb-2013 End: 24-Nov-2014 Status: Inactive Comments: Medication taken as needed. Comment on above: Medication taken as needed. Problems Active Problems Problem Classification Problem Date Documented Da te Episodic/Chronic Abdominal hernia (20 sources) Hiatal hernia; Translations: [Diaphragmatic hernia without obstruction or gangrene] 04-08-2023 Episodic Abdominal pain (20 sources) Abdominal pain; Translations: [Unspecified abdominal pain] 03-12-2023 Episodic Acute bronchitis (20 sources) Acute bronchitis; Translations: [Acute bronchitis, unspecified] 12-19-2015 Episodic Anxiety disorders (20 sources) Mixed anxiety and depressive disorder; Translations: [Anxiety disorder, unspecified] 04-08-2023 Chronic Calculus of urinary tract (20 sources) Kidney stone; Translations: [Calculus of kidney] 04-08-2023 Episodic Cardiac dysrhythmias (20 sources) Palpitations; Translations: [Palpitations] 09-09-2023 Episodic Chronic obstructive pulmonary disease and bronchiectasis (20 sources) Bronchitis; Translations: [Bronchitis, not specified as acute or chronic] 08-20-2018 Episodic Contraceptive and procreative management (20 sources) Intrauterine contraceptive device in situ; Translations: [Presence of (intrauterine) contraceptive device] 04-08-2023 Episodic Deficiency and other anemia (20 sources) Iron deficiency anemia; Translations: [Iron deficiency anemia, unspecified] 04-08-2023 Episodic Esophageal disorders (20 sources) Gastroesophageal reflux disease; Translations: [Gastro-esophageal reflux disease without esophagitis] 03-12-2023 Chronic Esophageal disorders (1 source) Esophageal disorders 09-09-2023 Headache; including migraine (20 sources) Headache; Translations: [Headache] 03-09-2024 Episodic Heart valve disorders (10 sources) Heart murmur; Translations: [Cardiac murmur, unspecified] 09-23-2024 Episodic Influenza (20 sources) Disorder of respiratory system; Translations: [Influenza due to unidentified influenza virus with other respiratory manifestations] 06-18-2016 Episodic Menstrual disorders (20 sources) Menorrhagia; Translations: [Excessive and frequent menstruation with regular cycle] 04-08-2023 Chronic Nonmalignant breast conditions (20 sources) Breast lump; Translations: [Unspecified lump in unspecified breast] 08-20-2018 Episodic Osteoarthritis (20 sources) Arthritis; Translations: [Unspecified osteoarthritis, unspecified site] 04-08-2023 Chronic Other connective tissue disease (20 sources) Fibromyalgia; Translations: [Fibromyalgia] 04-08-2023 Episodic Other connective tissue disease (20 sources) Rotator cuff impingement syndrome; Translations: [Unspecified rotator cuff tear or rupture of unspecified shoulder, not specified as traumatic] 04-08-2023 Episodic Other gastrointestinal disorders (20 sources) Abdominal bloating; Translations: [Abdominal distension (gaseous)] 04-08-2023 Episodic Other non-traumatic joint disorders (20 sources) Ankle pain; Translations: [Pain in left ankle and joints of left foot] 08-20-2018 Episodic Other non-traumatic joint disorders (20 sources) Swollen ankle region; Translations: [Effusion, left ankle] 08-20-2018 Episodic Other non-traumatic joint disorders (20 sources) Multiple joint pain; Translations: [Pain in unspecified joint] 04-08-2023 Episodic Other non-traumatic joint disorders (20 sources) Pain in right shoulder; Translations: [Pain in joint, shoulder region] 08-20-2018 Episodic Other nutritional; endocrine; and metabolic disorders (20 sources) Body mass index 30+ - obesity; Translations: [Body mass index (BMI) 31.0-31.9, adult] 08-20-2018 Chronic Other nutritional; endocrine; and metabolic disorders (10 sources) Obesity; Translations: [Obesity, unspecified] 09-23-2024 Chronic Other screening for suspected conditions (not mental disorders or infectious disease) (20 sources) Mammography abnormal; Translations: [Other abnormal and inconclusive findings on diagnostic imaging of breast] 04-08-2023 Episodic Other skin disorders (20 sources) Nodule of subcutaneous tissue of left upper limb; Translations: [Localized swelling, mass and lump, left upper limb] 04-08-2023 Episodic Other skin disorders (20 sources) Lesion of skin of face; Translations: [Disorder of the skin and subcutaneous tissue, unspecified] 08-30-2018 Episodic Other upper respiratory infections (20 sources) Acute sinusitis; Translations: [Acute sinusitis, unspecified] 03-10-2016 Episodic Residual codes; unclassified (20 sources) Family history of malignant neoplasm of breast in first degree relative; Translations: [Family history of malignant neoplasm of breast] 04-08-2023 Episodic Residual codes; unclassified (20 sources) Flushing; Translations: [Flushing] 04-08-2023 Episodic Residual codes; unclassified (20 sources) At high risk for breast cancer; Translations: [Other specified personal risk factors, not elsewhere classified] 04-15-2024 Episodic Spondylosis; intervertebral disc disorders; other back problems (20 sources) Lumbar radiculopathy; Translations: [Radiculopathy, lumbar region] 08-20-2018 Episodic Syncope (10 sources) Syncope; Translations: [Syncope and collapse] 09-23-2024 Episodic Unclassified (20 sources) 3 bulging and 1 degenerative disc 04-08-2023 Unclassified (20 sources) HPV positive 04-08-2023 Unclassified (20 sources) Number of Children 12-05-2019 Comment on above: 3. Unclassified (20 sources) Number of Pregnancies 12-05-2019 Comment on above: 3. Unclassified (20 sources) Vaginal deliveries 12-05-2019 Comment on above: 3. Unclassified (20 sources) Follow up for multiple chronic conditions - The patient is here for follow-up of anxiety, arthritis, depression and GERD. The patient always takes the prescribed medications. No side effects noted. The patient engages in regular exercise program 3-5 times per week (walks). The patient's out of office blood pressure checks occur rarely. The patient states that there is no recent angina or dyspnea, weight has increased and headaches are noted often but not on daily basis (normal for her). The patient states that the disease has no overall impact. Note for Multiple chronic conditions follow-up: Constant abd bloating.Saw Dr. Menchaca around September 2021 - EGD showed Kolb's esophagus so he wanted her on PPI residential and then to have EGD every 18 months. Gets episodes of severe abd pain - has had 2 episodes where she passed out from it. Unsure if it is trapped gas. All upper abdomen. Normal BMs.LMP was 1.5 weeks ago - periods have been spanning out longer times and then being heavier. Still having on average every month.Full body joint pain. No swelling of the joints other than occasionally of hands. + stiffness, worse in the am. 10-02-2022 Unclassified (20 sources) Follow up for multiple chronic conditions - The patient is here for follow-up of anxiety, depression and GERD. The patient always takes the prescribed medications. No side effects noted (Pt feels like the Omeprazole is not working anymore, feels like she has gallbladder sx but had gallbladder removed). The patient has an active lifestyle but no regular exercise program. The patient's out of office blood pressure checks occur rarely. The patient states that weight has increased (10lb). The patient states that the disease has no overall impact. Note for Multiple chronic conditions follow-up: Pt also wants right ear checked, had pain but now better. Pt needs an order for a mammo. Pt has some swelling in her left elbow area, no pain but will be itchy at times. Has been there x months.After having gallbladder removed last year she was doing ok but for the past month it has been worse. Does feel like the PPI helps her heartburn/indigestion but has a lot of upper abd bloating and feeling like there is a ball in upper central abd after eating (has to lean back and stretch to help it feel better). 08-07-2021 Unclassified (20 sources) Follow up for multiple chronic conditions - The patient is here for follow-up of anxiety and depression. The patient always takes the prescribed medications. No side effects noted. The patient has an active lifestyle but no regular exercise program. The patient states that depression has worsened. Note for Multiple chronic conditions follow-up: Pt wants to discuss med change, feels like Lexapro is not helping at all.Working 80 hours a week -- no days off since June 04. In a different role than usual with more responsibility. Feels is missing out on childrens' lives. Panic attacks. 07-06-2020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 PPI continues but is symptomatic if dose missed. ? EGD 08.22.21 without abnormality; Kolb???s +. *BGI established 03.12.23 with long history of GERD with worsening of symptoms early 2020; cholecystectomy mid-2020. ? Biochemical CBC (hgb L11.8), ESR, CMP, amylase, lipase, TSH, GAME(L4), JACKI, ANCA, JAS comp, celiac without pertinent abnormality ? CRP H7.47 ? [facility] O[facility] 04.17.23 CBD patent. ? GET 04.22.23 WNL Contact, 04.27.23 with results; can move EGD forward. ? EGD with [facility] 05.21.23 irregular Zline; gastric hyperplastic polyps; duodenitis. No path changes. ? [facility] Total [place]ter 60.2 upright [place] 47.8 upright Contact 06.16.23 with results; PPI helpful if she remembers to take. Wants labs at [facility], faxed ? Biochemical [facility] ESR, CRP, gastrin, Food, chromogranin A not performed OV 4 pt reports she is having worsening symptoms of regurgitation, bloating, and pain. States she only drinks water and has cut out several foods, but nothing helps with the regurgitation. She is experiencing episodes of regurgitation several times a week. Pt is taking protonix 40mg BID. Lab orders were not completed, pt states she was unaware of orders. OV 11.08.24 pt reports continued symptoms of regurgitation, bloating, and abdominal pain. Pt reports she has had one episode of passing out. Pt states she has cut out even more foods and is still having the regurgitation. Continues with pantoprazole 40mg BID. ROS Const Constitutional: Positive for fatigue and headache(s); No fever(s) or weight change ENT ENT: Positive for headache(s); No difficulty swallowing Cardio Cardiology: Positive for leg pain with exertion Gastro GI: Positive for abdominal pain, bloating, constipation and excessive flatus; No belching, change in bowel habits, change in stool character, coffee ground emesis, cramping, diarrhea, heartburn, difficulty swallowing, feeling full early, incontinent of stools, Vomiting blood/hematemesis, Blood in stool, loose stools, Black,tarry stools, nausea/dyspepsia, pain with swallowing, vomiting or other Musc Musculoskeletal: Positive for joint pain, stiffness, Arthritis and leg pain with exertion Skin Skin: No yellowing of the eye or itchy eyes Neuro Neurology: Positive for headache(s) Psych Psychiatric: Positive for anxiety and No depression Endo (more content not included)... Normal [facility] CV ECHO COMPLETE WITHOUT CON TRASTon 10-04-2024 CV ECHO COMPLETE WITHOUT CONTRAST [place] [address] Patient: SAMANTA HUNT Phone#: : 1980 Age: 44 Gender: F Pt. Type: Out Account: [id number] Location: 062 Ordering: JELENA DURHAM Exam Date: 10/04/202413:53 Family Phys: GEOFF MCLEOD Charge Code: [id number] Physician: Bowman Order #: [id number] Dose#: PROCEDURE: ECHOCARDIOGRAM WITH DOPPLER AND COLOR FLOW HISTORY: Patient is a 44-year-old female with murmur INDICATIONS: MURMUR COMPARISON: None. TECHNIQUE: A 2-D ultrasound, color spectral Doppler and M-mode evaluation of the heart and great vessels. PATIENT MEASUREMENTS: Height (in.): 67 BSA: 2.1 Weight (lbs.): 220 BP: 122/72 Timber Appraiser: LELO M MODE 2D MEASUREMENTS AND CALCULATIONS: LVIDd: 4.53 cm LVIDs: 2.88 cm IVSd: 0.89 cm LVPWd: 0.95 cm LVOT diam: 2.1 cm FS: 36.46 % Ao Root diam: 2.85 cm LA diam: 5.1 cm LA Volume Index: 31 mL/m2 LA A4 Area: 22.72 cm2 RA A4 Area: 20 cm2 RVDd: 3.12 cm TAPSE: 22 mm DOPPLER MEASUREMENTS AND CALCULATIONS MITRAL MV E MAX anderson: 0.98 m/s MV A MAX anderson: 0.56 m/s MV E-A ratio: 1.76 MV V2 max: 1.09 m/s MV max P.72 mm[Hg] MV V2 mean: 0.52 m/s Continued Report - Page 2 of 3 Patient: SAMANTA HUNT Phone#: : 1980 Age: 44 Gender: F Pt. Type: Out Account: [id number] Location: 062 Ordering: JELENA DURHAM Exam Date: 10/04/202413:53 Family Phys: GEOFF MCLEOD Charge Code: [id number] Physician: Bowman Order #: [id number] Dose#: MV mean P.39 mm[Hg] MV V2 VTI: 33.95 cm Lat Peak E' Anderson 11 cm/sec Septal Peak E' ANDERSON 10 cm/sec E/E' lateral 9 E/E' media 10 AORTIC Ao V2 max: 1.59 m/s Ao max P.09 mm[Hg] Ao V2 mean: 1.05 m/s Ao mean P.03 mm[Hg] Ao V2 VTI: 37.62 cm LV V1 Max 1.23 m/s LV V1 Max PG 6.06 mm[Hg] LV V1 Mean PG 3.35 mm[Hg] LV V1 mean 0.86 m/s LV V1 VTI 28.94 cm PULMONIC PA V2 Max 1.20 m/s PA Max PG 5.78 mm[Hg] TRICUSPID TR Max Anderson 1.71 m/s TR max PG 11.73 mm[Hg] RVSP 2D/M-MODE AND COLOR FLOW LEFT VENTRICLE: Left ventricle is normal in size and thickness. Systolic ejection fraction is 60-65%. There are no regional wall motion abnormality seen. Normal diastolic function. WALL MOTION: 1 - Basal anterior: Normal. 7 - Mid anterior: Normal. 13 - Apical anterior: Normal. 2 - Basal anteroseptal: Normal. 8 - Mid anteroseptal: Normal. 14 - Apical septal: Normal. 3 - Basal inferoseptal: Normal. 9 - Mid inferoseptal: Normal. 15 - Apical inferior: Normal. 4 - Basal inferior: Normal. 10-Mid inferior: Normal. 16 - Apical lateral: Normal. 5 - Basal inferolateral: Normal. 11-Mid inferolateral: Normal. 6 - Basal anterolateral: Normal. 12-Mid anterolateral: Normal. RIGHT VENTRICLE: Right ventricle is normal in size and systolic function LEFT ATRIUM: Left atrium is normal size RIGHT ATRIUM: Right atrium is normal size. ATRIAL SEPTUM: There is no large interatrial shunt seen. PFO was not assessed. Continued Report - Page 3 of 3 Patient: SAMANTA HUNT Phone#: : 1980 Age: 44 Gender: F Pt. Type: Out Account: [id number] Location: [facility] Ordering: [facility] Exam Date: 10/04/2024/13:53 Family Phys: GEOFF MCLEOD Charge Code: [id number] Physician: Bowman Order #: [id number] Dose#: MITRAL VALVE: Mitral valve appears normal structure. There is trivial regurgitation no stenosis seen. TRICUSPID VALVE: Tricuspid valve is inadequately visualized. There is trivial regurgitation and no stenosis seen. AORTIC VALVE: Aortic valve is trileaflet. There is no regurgitation or stenosis seen. PULMONIC VALVE: For pulmonic valve is inadequately visualized. Doppler shows no significant regurgitation or stenosis AORTIC ROOT: Aortic root is normal size. AORTIC ARCH: Aortic arch normal in size DESC THORACIC AORTA: Inadequately visualized. Doppler shows normal flow. IVC/SVC: Inadequately visualized. PULMONARY VEINS: Normal pulmonic vein flow. PERICARDIUM: There is no pericardial effusion seen. CONCLUSION: 1. Left ventricle is normal in size and thickness. Systolic ejection fraction is 60-65% with normal wall motion 2. There are no significant valvular dysfunction seen 3. Right ventricle is normal in size and systolic function 4. TR velocity is inadequate to calculate for right ventricular systolic pressure. Dictated by: SYDNEY OATES MD on 10/05/2024 at 9:02 Approved by: SYDNEY OATES MD on 10/05/2024 at 9:13 Normal [facility] US BREAST RT UNILATERAL COMP LETEon 05-17-2024 BREAST RT UNILATERAL COMPLETE [place] [address] Patient: SAMANTA HUNT Phone#: : 1980 Age: 44 Gender: F Pt. Type: Out Account: [id number] Location: [facility] Ordering: JELENA DURHAM Exam Date: 05/17/2024/9:01 Family Phys: GEOFF MCLEOD Charge Code: [id number] Physician: Bowman Order #: [id number] Dose#: PROCEDURE: ULTRASOUND BREAST RT COMPARISON: [facility], BREAST RT COMPLETE, 08/30/2021, 11:20. INDICATIONS: Abnormal MRI TECHNIQUE: Breast ultrasound was performed, with evaluation focusing on all four quadrants. FINDINGS: DIAGNOSTIC CATEGORY 1--NEGATIVE NO CHANGE FROM COMPARISON ASSESSMENT. RIGHT BREAST: No significant suspicious finding. Scarring is present at the site of previous surgery in incision in the 10 o'clock position of the breast. A 3 millimeter cyst is present at 2:00 o'clock RECOMMENDATIONS: ROUTINE MAMMOGRAM AND CLINICAL EVALUATION IN 12 MONTHS. PLEASE NOTE: A NORMAL MAMMOGRAM DOES NOT EXCLUDE THE POSSIBILITY OF BREAST CANCER. A CLINICALLY SUSPICIOUS PALPABLE LUMP SHOULD BE BIOPSIED. RIGHT BREAST: Dictated by: Zuly Snyder MD on 05/17/2024 at 16:19 Approved by: Zuly Snyder MD on 05/17/2024 at 16:25 Normal [facility] 3D MAMM BILAT SCREENon 05-03 3D MAMM BILAT SCREEN [place] [address] Patient: SAMANTA HUNT Phone#: : 1980 Age: 44 Gender: F Pt. Type: Out Account: [id number] Location: [facility] Ordering: [facility] Exam Date: 05/03/2024/10:39 Family Phys: Charge Code: [id number] Physician: Bowman Order #: [id number] Dose#: PROCEDURE: BILATERAL SCREENING BREAST TOMOSYNTHESIS MAMMOGRAM WITH CAD COMPARISON: [facility], 3D BILAT SCREEN, 11/03/2022, 14:08. [facility], SURGICAL SPECIMEN, RADIOLOGICAL EXAM, 10/02/2021, 12:13. INDICATIONS: Screening. BREAST COMPOSITION: Scattered areas fibroglandular density. FINDINGS: DIAGNOSTIC CATEGORY 1--NEGATIVE NO CHANGE FROM COMPARISON ASSESSMENT. RIGHT BREAST: No significant suspicious finding. No significant change has occurred. LEFT BREAST: No significant suspicious finding. No significant change has occurred. RECOMMENDATIONS: ROUTINE MAMMOGRAM AND CLINICAL EVALUATION IN 12 MONTHS. PLEASE NOTE: A NORMAL MAMMOGRAM DOES NOT EXCLUDE THE POSSIBILITY OF BREAST CANCER. A CLINICALLY SUSPICIOUS PALPABLE LUMP SHOULD BE BIOPSIED. THIS FACILITY UTILIZES A REMINDER SYSTEM TO ENSURE THAT ALL PATIENTS RECEIVE REMINDER LETTERS FOR APPOINTMENTS. THIS INCLUDES REMINDERS FOR ROUTINE MAMMOGRAMS, DIAGNOSITC MAMMOGRAMS, OR OTHER BREAST IMAGING INTERVENTIONS WHEN APPROPRIATE. THIS PATIENT WILL BE PLACED IN THE APPROPRIATE REMINDER SYSTEM. Dictated by: Zuly Snyder MD on 05/03/2024 at 14:26 Approved by: Zuly Snyder MD on 05/03/2024 at 14:29 [facility] MR BREAST BILATERAL W/WO CON TRASTon 05-03-2024 MR BREAST BILATERAL W/WO CONTRAST [place] [id number] [place] [address] Patient: SAMANTA HUNT Phone#: : 1980 Age: 44 Gender: F Pt. Type: Out Account: [id number] Location: [facility] Ordering: JELENA DURHAM Exam Date: 05/03/2024/11:08 Family Phys: GEOFF MCLEOD Charge Code: [id number] Physician: Bowman Order #: [id number] Dose#: PROCEDURE: MRI BREAST BILAT WITH AND WITHOUT CONTRAST COMPARISON: [facility], 3D BILAT SCREEN, 08/30/2021, 10:26. [facility], 3D BILAT SCREEN, 11/03/2022, 14:08. [facility], 3D BILAT SCREEN, 05/03/2024, 10:39. INDICATIONS: High risk family history of breast cancer TECHNIQUE: Breast MRI was performed before and after using dynamic intravenous gadolinium infusion, thin sections, and a dedicated breast coil. ENHANCEMENT PATTERN: Mild, with 25-50% of glandular tissue demonstrating enhancement. FINDINGS: DIAGNOSTIC CATEGORY 0--INCOMPLETE: NEED ADDITIONAL IMAGING EVALUATION. Right breast: There is mild background parenchymal enhancement. Deep in the lateral breast is non mass linear distribution with type 1 enhancement. Area of involvement is 19 x 6 millimeters. Further evaluation by ultrasound is recommended. Correlating focal abnormality is not demonstrated on mammography. Left breast: There is mild background parenchymal enhancement. There no focally enhancing lesions. RECOMMENDATIONS: ULTRASOUND: RIGHT BREAST --We will call the patient back for an ultrasound and provide an additional report. PLEASE NOTE: A NORMAL MRI DOES NOT EXCLUDE THE POSSIBILITY OF BREAST CANCER. A CLINICALLY SUSPICIOUS PALPABLE LUMP SHOULD BE BIOPSIED. Dictated by: Zuly Snyder MD on 05/09/2024 at 15:57 Approved by: Zuly Snyder MD on 05/11/2024 at 16:04 Normal [facility] Basophil percentageOrdered B y: Toro Nugent on 09-10-2023 Basophil percentage 0-5 SEEN /hpf 0-5 [facility] Bilirubin Test strip Ql (U)O rdered By: Toro Nugent on 09-10-2023 Bilirubin Ql (U) Negative Negative [facility] Ketones Test strip Ql (U)Ord ered By: Toro Nugent on 09-10-2023 Ketones Ql (U) Negative Negative [facility] Laboratory - Chemistry and C hemistry - challengeOrdered By: Toro Nugent on 09-10-2023 CK [Catalytic activity/Vol] 77 U/L 26-192 [facility] Mucus LM Ql (Urine sed)Order ed By: Toro Nugent on 09-10-2023 Mucus Ql (Urine sed) 0 SEEN /hpf [facility] Nitrite Test strip Ql (U)Ord ered By: Toro Nugent on 09-10-2023 Nitrite Ql (U) Negative Negative [facility] No Panel InformationOrdered By: Toro Nugent on 09-10-2023 C-Reactive Protein Extended Range 6.16 mg/L 0.0-3.0 [facility] Comment on above: C-Reactive Protein ( CRP) provides useful information for thediagnosis, therapy and monitoring of inflammatory processesand associated diseases. For the evaluation of Relative Riskfor Cardiovascular Disease, a High Sensitivity CRP (HSCRP)should be ordered. Parathyroid Hormone (Intact) 44.4 pg/mL 18.4-80.1 [facility] Urine RBC 0 SEEN /hpf 0-5 [facility] Protein Test strip Ql (U)Ord ered By: Toro Nugent on 09-10-2023 Protein Ql (U) Negative Negative [facility] Serum or plasma cortisol angelica surement (mass/volume)Ordered By: Toro Nugent on 09-10-2023 Cortisol [Mass/Vol] 8.90 ug/dL 3.44-22.45 [facility] Comment on above: Adult (AM) 5.27 - 22 .45 ug/dL Adult (PM) 3.44 - 16.76 ug/dLPlease note revised CORTISOL reference range effective 2019. Serum or plasma thyroid stim ulating hormone (TSH) measurement (units/volume)Ordered By: Toro Nugent on 09-10-2023 TSH Qn 0.71 uIU/mL 0.358-3.74 [facility] Squamous epithelial cells de tection in urine sediment by light microscopyOrdered By: Toro Nugent on 09-10-2023 Epithelial cells.squamous LM Ql (Urine sed) 0-5 SEEN /hpf 5-10 [facility] Thin prep Papanicolaou smear with manual screeningOrdered By: Toro Nugent on 09-10-2023 Thin prep Papanicolaou smear with manual screening 2 ng/mL 0-13 [facility] Comment on above: Performed at: - [address] [id number] Director: Demond Cross MD, Phone: [phone] Urine blood detectionOrdered By: Toro Nugent on 09-10-2023 RBC Ql (U) Negative Negative [facility] Urine clarityOrdered By: Rolando Nugent on 09-10-2023 Clarity (U) Clear Clear [facility] Urine color determinationOrd ered By: Toro Nugent on 09-10-2023 Color (U) Yellow Yellow [facility] Urine glucose detectionOrder ed By: Toro Nugent on 09-10-2023 Glucose Ql (U) Normal mg/dl Normal [facility] Urine leukocyte esterase det ection by dipstickOrdered By: Toro Nugent on 09-10-2023 Leukocyte esterase Test strip Ql (U) Negative Negative [facility] Urine pHOrdered By: Toro Nugent on 09-10-2023 pH (U) 6.5 [pH] 5.0 - 8.0 [facility] Urine sediment bacteria coun t by microscopy (number/high power field)Ordered By: Toro Nugent on 09-10-2023 Bacteria LM.HPF (Urine sed) [#/Area] 1 /[HPF] None Seen [facility] Urine specific gravity measu rementOrdered By: Toro Nugent on 09-10-2023 Specific gravity (U) [Rel density] 1.010 1.002-1.[address] [facility] Urine urobilinogen measureme ntOrdered By: Toro Nugent on 09-10-2023 Urobilinogen Ql (U) Normal mg/dl Normal [facility] Whole blood hemoglobin A1c/t otal hemoglobin ratio (mass fraction)Ordered By: Toro Nugent on 09-10-2023 HbA1c (Bld) [Mass fraction] 5.2 % 3.8-5.6 [facility] Comment on above: Normal < 5.7 % Predi abetic 5.7 - 6.4 % Diabetic >or= 6.5 % Please note range changes. Laboratory - Chemistry and C hemistry - challengeOrdered By: Martinez [place] on 05-21-2023 HCG ( test) Ql (U) Negative [facility] Comment on above: Very dilute urine sp ecimens, as indicated by a low specificgravity, may not contain public utilities sales representative levels of hCG. If is still suspected, a first morning urinespecimen should be collected 48 hours later and tested. Laboratory - Microbiology an d Antimicrobial susceptibilityon 04-08-2023 S. pyogenes Ag EIA Ql (Throat) Negative Normal [facility]. Absolute lymphocyte countOrd ered By: Toro Nugent on 03-12-2023 Lymphocytes Auto (Unsp spec) [#/Vol] 1.54 10*3/uL 0.83-4.51 [facility] Albumin Elph [Mass/Vol]Order ed By: Toro Nugent on 03-12-2023 Albumin [Mass/Vol] 3.9 g/dL 2.9-4.4 [facility] Atypical perinuclear antineu trophil cytoplasmic antibodies measurementOrdered By: Toro Nugent on 03-12-2023 Neutrophil cytoplasmic Ab.perinuclear.atypical IF (S) [Titer] <1:20 titer Neg:<1:20 [facility] Comment on above: The atypical pANCA p attern has been observed in asignificant percentage of patients with ulcerative colitis,primary sclerosing cholangitis and autoimmune hepatitis. Basophil percentageOrdered B y: Toro Nugent on 03-12-2023 Amylase [Catalytic activity/Vol] 87 U/L 25-115 [facility] Basophil percentage 0.2 AI 0.0-0.9 [facility] Basophil percentage < 0.2 AI 0.0-0.9 [facility] Basophils/100 WBC (Bld) 0.3 % 0-1 [facility] Bilirubin [Mass/Vol] 0.80 mg/dL 0.20-1.00 [facility] Comment on above: For patients on eltr ombopag therapy, use of Dimension [place] TBIL is not recommended. Chloride [Moles/Vol] 108 mmol/L 98-107 [facility] Eosinophils/100 WBC (Bld) 0.8 % 0-5 [facility] Glucose [Mass/Vol] 106 mg/dL 74-106 [facility] Comment on above: Fasting Glucose resu lt from 100 to 125 mg/dL suggests IMPAIRED HOMEOSTASIS per A.D.A. criteria. Neutrophils (Bld) [#/Vol] 4.1 10*3/uL 2.0-7.7 [facility] Neutrophils/100 WBC (Bld) 67.8 % 47-70 [facility] Potassium [Moles/Vol] 3.7 mmol/L 3.5-5.1 [facility] Protein [Mass/Vol] 7.2 g/dL 6.4-8.2 [facility] Sodium [Moles/Vol] 138 mmol/L 136-145 [facility] WBC (Bld) [#/Vol] 6.1 10*3/uL 4.4-11.0 [facility] Blood erythrocytes count (nu mber/volume)Ordered By: Toro Nugent on 03-12-2023 RBC (Bld) [#/Vol] 4.98 10*6/uL 4.2-5.4 [facility] Blood hemoglobin measurement (mass/volume)Ordered By: Toro Nugent on 03-12-2023 Hemoglobin (Bld) [Mass/Vol] 11.8 g/dL 12.0-15.0 [facility] Blood lymphocytes/100 leukoc ytesOrdered By: Toro Nugent on 03-12-2023 Lymphocytes/100 WBC (Bld) 25.2 % 19-41 [facility] Blood monocytes/100 leukocyt esOrdered By: Toro Nugent on 03-12-2023 Monocytes/100 WBC (Bld) 5.6 % 0-10 [facility] Blood platelet mean volumeOr dered By: Toro Nugent on 03-12-2023 Platelet mean volume (Bld) [Entitic vol] 11.1 fL 6.2-12.0 [facility] Determination of erythrocyte mean corpuscular volume (MCV)Ordered By: Toro Nugent on 03-12-2023 MCV (RBC) [Entitic vol] 80.1 fL 81-99 [facility] Erythrocyte sedimentation ra teOrdered By: Toro Nugent on 03-12-2023 ESR (Bld) [Velocity] 3 mm/h 0-30 [facility] Hematocrit Auto (Bld) [Volum e fraction]Ordered By: Toro Nugent on 03-12-2023 Hematocrit (Bld) [Volume fraction] 39.9 % 37-47 [facility] Interpretation of serum or p lasma protein pattern by immunofixation (narrative resultOrdered By: Toro Nugent on 03-12-2023 Protein Fractions Immunofixation Luis [Interp] See comment [facility] Comment on above: Result: Not Observed Laboratory - Chemistry and C hemistry - challengeOrdered By: Toro Nugent on 03-12-2023 ALP [Catalytic activity/Vol] 70 U/L 45-117 [facility] ALT [Catalytic activity/Vol] 20 U/L 13-56 [facility] CO2 [Moles/Vol] 26.0 mmol/L 21.0-32.0 [facility] Lipase [Catalytic activity/Vol] 38 U/L 13-75 [facility] Comment on above: Please note:LIPASE r evised reference range effective 22. New Lipase methodology. Expected to produce lower values than the previous assay method. NEW Reference Range: 13 - 75 U/L Urea nitrogen/Creatinine [Mass ratio] 10.8 mg/mg 10-20 [facility] Laboratory - Hematology and Cell countsOrdered By: Toro Nugent on 03-12-2023 Erythrocyte distribution width (RBC) [Entitic vol] 40.5 fL 35.1-43.9 [facility] Erythrocyte distribution width (RBC) [Ratio] 14.1 % 11.6-14.6 [facility] Immature granulocytes/100 WBC (Bld) 0.300 % 0.0-0.9 [facility] Comment on above: IG% - Immature Granu locytes (promyelocytes, myelocytes and metamyelocytes) > 1% indicates that a LEFT SHIFT is Present. MCH (RBC) [Entitic mass] 23.7 pg 27.0-32.0 [facility] Nucleated RBC/100 WBC (Bld) [Ratio] 0 % 0[facility]5 [facility] [Mass/Vol]Or dered By: Toro Nugent on 03-12-2023 MCHC (RBC) [Mass/Vol] 29.6 g/dL 32-36 [facility] No Panel InformationOrdered By: Toro Nugent on 03-12-2023 Addendum Document Comment . [facility] Comment on above: Protein electrophore sis scan will follow via computer,mail, or trip rider delivery. Centromere B Antibody <0.2 AI 0.0-0.9 [facility] Endomysial IgA Antibody Negative Negative [facility] Estimated GFR (MDRD) Amer 97 mL/min >60 [facility] Comment on above: GFR Calc Estimated GFR (MDRD) Non-Af Amer 80 mL/min >60 [facility] Comment on above: Non- GFR Calc Immunoglobulin E 4 IU/mL 6-495 [facility] Comment on above: Performed at: - [facility] [address] [id number] Director: Adrián Wheatley PhD, Phone: [phone] at: [facility] Lab[address] [id number] Director: Demond Cross MD, Phone: [phone] [employer]AT DOCK [employer]PER[employer] Antibody <0.2 AI 0.0-0.9 [facility] Thyroid Stimulating Hormone (TSH) 0.78 uIU/mL 0.358-3.74 [facility] Platelets bldOrdered By: Rolando Nugent on 03-12-2023 Platelets (Bld) [#/Vol] 294 10*3/uL 150-450 [facility] Serum DNA double strand anti body assay (units/volume)Ordered By: Toro Nugent on 03-12-2023 DNA double strand Ab Qn (S) [IU]/mL 0-9 [facility] Comment on above: Negative <5 Equivoca l 5 - 9 Positive >9 Serum Martha-1 antibody assay (u nits/volume)Ordered By: Toro Nugent on 03-12-2023 Martha-1 extractable nuclear Ab Qn (S) <0.2 AI 0.0-0.9 [facility] Serum Scl-70 extractable nuc lear antibody assay (units/volume)Ordered By: Toro Nugent on 03-12-2023 SCL-70 extractable nuclear Ab Qn (S) <0.2 AI 0.0-0.9 [facility] Serum Llanes extractable nucl ear antibody detectionOrdered By: Toro Nugent on 03-12-2023 [place] extractable nuclear Ab Ql (S) <0.2 AI 0.0-0.9 [facility] Serum [id number] measu rement by electrophoresisOrdered By: Toro Nugent on 03-12-2023 Alpha 1 globulin Elph [Mass/Vol] 0.3 g/dL 0.0-0.4 [facility] Alpha 1 globulin Elph [Mass/Vol] 0.7 g/dL 0.4-1.0 [facility] Serum classic neutrophil cyt oplasmic antibody assay (units/volume)Ordered By: Toro Nugent on 03-12-2023 Neutrophil cytoplasmic Ab.classic Qn (S) <1:20 titer Neg:<1:20 [facility] Serum globulin measurement ( mass/volume)Ordered By: Toro Nugent on 03-12-2023 Globulin (S) [Mass/Vol] 2.8 g/dL 2.2-3.9 [facility] Serum or plasma C reactive p rotein measurement (mass/volume)Ordered By: Toro Nugent on 03-12-2023 CRP [Mass/Vol] 7.47 mg/L 0.0-3.0 [facility] Comment on above: C-Reactive Protein ( CRP) provides useful information for thediagnosis, therapy and monitoring of inflammatory processesand associated diseases. For the evaluation of Relative Riskfor Cardiovascular Disease, a High Sensitivity CRP (HSCRP)should be ordered. Serum or plasma IgA measurem ent (mass/volume)Ordered By: Toro Nugent on 03-12-2023 IgA [Mass/Vol] 127 mg/dL 87-352 [facility] Serum or plasma IgG measurem ent (mass/volume)Ordered By: Toro Nugent on 10-12-2023 IgG [Mass/Vol] 950 mg/dL 586-[facility]02 [facility] [facility] Serum or plasma IgM measurem ent (mass/volume)Ordered By: Toro Nugent on 03-12-2023 IgM [Mass/Vol] 48 mg/dL 26-217 [facility] Serum or plasma albumin tami urement (mass/volume)Ordered By: Toro Nugent on 03-12-2023 Albumin [Mass/Vol] 3.6 g/dL 3.2-5.0 [facility] Serum or plasma albumin/glob ulin mass ratioOrdered By: Toro Nugent on 03-12-2023 Albumin/Globulin [Mass ratio] 1.0 {ratio} 0.9-2.4 [facility] Serum or plasma beta globuli n measurement by electrophoresis (mass/volume)Ordered By: Toro Nugent on 03-12-2023 Beta globulin Elph [Mass/Vol] 0.9 g/dL 0.7-1.3 [facility] Serum or plasma calcium tami urement (mass/volume)Ordered By: Toro Nugent on 03-12-2023 Calcium [Mass/Vol] 8.7 mg/dL 8.5-10.1 [facility] Serum or plasma creatinine m easurement (mass/volume)Ordered By: Toro Nugent on 03-12-2023 Creatinine [Mass/Vol] 0.84 mg/dL 0.55-1.02 [facility] Comment on above: The validity of the calculated GFR & GFRAA in patients over 70 years has not been determined. Clinical correlation is essential. Serum or plasma gamma globul in measurement by electrophoresis (mass/volume)Ordered By: Toro Nugent on 03-12-2023 Gamma globulin Elph [Mass/Vol] 0.9 g/dL 0.4-1.8 [facility] Serum or plasma immunoelectr ophoresis interpretation (nominal result)Ordered By: Toro Nugent on 03-12-2023 Interpretation IEP [Interp] Comment . [facility] Comment on above: No monoclonality det ected. Serum or plasma urea nitroge n measurement (mass/volume)Ordered By: Toro Nugent on 03-12-2023 Urea nitrogen [Mass/Vol] 9 mg/dL 7-18 [facility] Serum perinuclear neutrophil cytoplasmic antibody titer by immunofluorescenceOrdered By: Toro Nugent on 03-12-2023 Neutrophil cytoplasmic Ab.perinuclear IF (S) [Titer] <1:20 titer Neg:<1:20 [facility] Comment on above: The presence of posi tive fluorescence exhibiting P-ANCA orC-ANCA patterns alone is not specific for the diagnosis ofWegener's Granulomatosis (WG) or microscopic polyangiitis.Decisions about treatment should not be based solely onANCA IFA results. The International ANCA Group Consensusrecommends follow up testing of positive sera with both WY-3 and MPO-ANCA enzyme immunoassays. As many as 5% serumsamples are positive only by EIA. Ref. AM J Clin [id number];111:507-513. Serum tissue transglutaminas e IgA antibody assay (units/volume)Ordered By: Toro Nugent on 03-12-2023 tTG IgA Qn (S) <2 U/mL 0-3 [facility] Comment on above: Negative 0 - 3 Weak Positive 4 - 10 Positive >10 Tissue Transglutaminase (tTG) has been identified as the endomysial antigen. Studies have demonstr- ated that endomysial IgA antibodies have over 99% specificity for gluten sensitive enteropathy. Thin prep Papanicolaou smear with manual screeningOrdered By: Toro Nugent on 03-12-2023 Thin prep Papanicolaou smear with manual screening 12 U/L 15-37 [facility] Thin prep Papanicolaou smear with manual screening 4 5-15 [facility] Thin prep Papanicolaou smear with manual screening 1.4 0.7-1.7 [facility] Total protein bloodOrdered B y: Toro Nugent on 03-12-2023 Protein [Mass/Vol] 6.7 g/dL 6.0-8.5 [facility] Whole blood hemoglobin A1c/t otal hemoglobin ratio (mass fraction)Ordered By: Toro Nugent on 03-12-2023 HbA1c (Bld) [Mass fraction] 5.1 % 3.8-5.6 [facility] Comment on above: Normal < 5.7 % Predi abetic 5.7 - 6.4 % Diabetic >or= 6.5 % Please note range changes. JAS SCREEN, IFA, W/REFL TITE R AND PATTERNon 10-03-2022 JAS SCREEN, IFA Negative Normal NEGATIVE [facility] Comment on above: Result Comment: JAS IFA is a first line screen for detecting the presence of up to approximately 150 autoantibodies in various autoimmune diseases. A negative JAS IFA result suggests an JAS-associated autoimmune disease is not present at this time, but is not definitive. If there is high clinical suspicion for Sjogren's syndrome, testing for anti-SS-A/Ro antibody should be considered. Anti-Martha-1 antibody should be considered for clinically suspected inflammatory myopathies. AC-0: Negative International Consensus on JAS Patterns (https://doi.org/10.1515/yjls-9648-3127) For additional information, please refer to http://education.etouches/faq/MTX801 (This link is being provided for informational/ educational purposes only.) Performed By: #### 6 399, 4418, 899, 866, 4420 #### [facility] [place] [address] Cloth Baler: oJe Monsalve MD C-REACTIVE PROTEINon 023 CRP [Mass/Vol] 5.6 mg/L Normal <8.0 [facility] Comment on above: Performed By: #### 6 399, 4418, 899, 866, 4420 #### [employer] [address], [address] [place] [address] Cloth Baler: Joe Monsalve MD CBC (INCLUDES DIFF/PLT)on Basophils (Bld) [#/Vol] 0.031 10*3/uL Normal 0-200 [facility] Comment on above: Performed By: #### 6 399, 4418, 899, 866, 4420 #### [facility] [place] [address] Cl[employer] Baler: Joe Monsalve MD Basophils/100 WBC (Bld) 0.6 % Normal [facility] Comment on above: Performed By: #### 6 399, 4418, 899, 866, 4420 #### [facility] [address], [address] [place] [address] Cloth Baler: Joe Monsalve MD Eosinophils (Bld) [#/Vol] 0.052 10*3/uL Normal 15-500 [facility] Comment on above: Performed By: #### 6 399, 4418, 899, 866, 4420 #### [facility] of [place] [address] Cloth Baler: Joe Monsalve MD Eosinophils/100 WBC (Bld) 1.0 % Normal [facility] Comment on above: Performed By: #### 6 399, 4418, 899, 866, 4420 #### [facility] of [place] [address] Cloth Baler: Joe Monsalve MD Erythrocyte distribution width (RBC) [Ratio] 14.2 % Normal 11.0-15.0 [facility] Comment on above: Performed By: #### 6 399, 4418, 899, 866, 4420 #### [facility] of [place] [address] Cloth Baler: Joe Monsalve MD Hematocrit (Bld) [Volume fraction] 36.6 % Normal 35.0-45.0 [facility] Comment on above: Performed By: #### 6 399, 4418, 899, 866, 4420 #### [facility] of [place] [address] Cloth Baler: Joe Monsalve MD Hemoglobin (Bld) [Mass/Vol] 11.3 g/dL Low 11.7-15.5 [facility] Comment on above: Performed By: #### 6 399, 4418, 899, 866, 4420 #### [facility] of [place] [address] Cloth Baler: Joe Monsalve MD Lymphocytes (Bld) [#/Vol] 1.669 10*3/uL Normal 850-3900 [facility] Comment on above: Performed By: #### 6 399, 4418, 899, 866, 4420 #### [facility] of [place] [address] Cl[employer] Baler: Joe Monsalve MD Lymphocytes/100 WBC (Bld) 32.1 % Normal [facility] Comment on above: Performed By: #### 6 399, 4418, 899, 866, 4420 #### [facility] of [place] [address] Cloth Baler: Joe Monsalve MD MCH (RBC) [Entitic mass] 23.1 pg Low 27.0-33.0 [facility] Comment on above: Performed By: #### 6 399, 4418, 899, 866, 4420 #### [facility] of [place] [address] Cloth Baler: Joe Monsalve MD MCHC (RBC) [Mass/Vol] 30.9 g/dL Low 32.0-36.[address] [facility] Comment on above: Performed By: #### 6 399, 4418, 899, 866, 4420 #### [facility] [place] [address] Cloth Baler: Joe Monsalve MD MCV (RBC) [Entitic vol] 74.7 fL Low 80.0-100.0 [facility] Comment on above: Performed By: #### 6 399, 4418, 899, 866, 4420 #### [facility] of [place] [address] Cloth Baler: Joe Monsalve MD Monocytes (Bld) [#/Vol] 0.27 10*3/uL Normal 200-950 [facility] Comment on above: Performed By: #### 6 399, 4418, 899, 866, 4420 #### [facility] of [place] [address] Cl[employer] Baler: Joe Monsalve MD Monocytes/100 WBC (Bld) 5.2 % Normal [facility] Comment on above: Performed By: #### 6 399, 4418, 899, 866, 4420 #### [facility] of [place] [address] Cloth Baler: Joe Monsalve MD Neutrophils (Bld) [#/Vol] 3.177 10*3/uL Normal 9644-0960 [facility] Comment on above: Performed By: #### 6 399, 4418, 899, 866, 4420 #### [facility] of [address], [address] [place] [address] Cloth Baler: Joe Monsalve MD Neutrophils/100 WBC (Bld) 61.1 % Normal [facility] Comment on above: Performed By: #### 6 399, 4418, 899, 866, 4420 #### [facility] of [place] [address] Cloth Baler: Joe Monsalve MD Platelet mean volume (Bld) [Entitic vol] 12.3 fL Normal 7.5-12.5 [facility] Comment on above: Performed By: #### 6 399, 4418, 899, 866, 4420 #### [facility] of [place] [address] Cloth Baler: Joe Monsalve MD Platelets (Bld) [#/Vol] 281 10*3/uL Normal 140-400 [facility] Comment on above: Performed By: #### 6 399, 4418, 899, 866, 4420 #### [facility] of [address], [address] [place] [address] Cloth Baler: Joe Monsalve MD RBC (Bld) [#/Vol] 4.90 10*6/uL Normal 3.80-5.10 [facility] Comment on above: Performed By: #### 6 399, 4418, 899, 866, 4420 #### [facility] of [address], [address] [place] [address] Cloth Baler: Joe Monsalve MD WBC (Bld) [#/Vol] 5.2 10*3/uL Normal 3.8-10.8 [facility] Comment on above: Performed By: #### 6 399, 4418, 899, 866, 4420 #### [facility] [place] [address] Cloth Baler: Joe Monsalve MD RHEUMATOID FACTORon 10-04-19 RHEUMATOID FACTOR <14 Normal <14 [facility] Comment on above: Performed By: #### 6 399, 4418, 899, 866, 4420 #### [facility] [place] [address] Cloth Baler: Joe Monsalve MD T4, FREEon 10-03-2022 Free T4 [Mass/Vol] 1.1 ng/dL Normal 0.8-1.8 [facility] Comment on above: Performed By: #### 6 399, 4418, 899, 866, 4420 #### [facility] [place] [address] Cloth Baler: Joe Monsalve MD TSHon 10-03-2022 TSH Qn 0.70 m[IU]/L Normal [facility] Comment on above: Result Comment: Refe rence Range > or = 20 Years 0.40-4.50 Ranges First trimester 0.26-2.66 Second trimester 0.55-2.73 Third trimester 0.43-2.91 Performed By: #### 6 399, 4418, 899, 866, 4420 #### [facility] [place] [address] Cloth Baler: Joe Monsalve MD Laboratory - Chemistry and C hemistry - challengeon 10-02-2022 CRP [Mass/Vol] 5.6 mg/L Normal [facility], [facility].; [facility] Free T4 [Mass/Vol] 1.1 ng/dL Normal 0.8 - 1.8 ng/dL [facility], [facility].; [facility], [facility]. TSH Qn 0.70 m[IU]/L Normal [facility], [facility].; [facility] Laboratory - Hematology and Cell countson 10-02-2022 Basophils (Bld) [#/Vol] 0.031 10*3/uL Normal 0 - 200 {cells/uL} [facility].; [facility], [facility] Basophils/100 WBC (Bld) 0.6 % Normal H [facility].; [facility], [facility] Eosinophils (Bld) [#/Vol] 0.052 10*3/uL Normal 15 - 500 {cells/uL} [facility].; [employer] [facility] Eosinophils/100 WBC (Bld) 1.0 % Normal [facility].; [employer], [facility] Erythrocyte distribution width (RBC) [Ratio] 14.2 % Normal 11.0 - 15.0 % [facility].; [employer] Hematocrit (Bld) [Volume fraction] 36.6 % Normal 35.0 - 45.0 % [facility].; [employer], [facility]. Hemoglobin (Bld) [Mass/Vol] 11.3 g/dL Abnormal 11.7 - 15.5 g/dL [facility].; [employer], [facility]. Lymphocytes (Bld) [#/Vol] 1.669 10*3/uL Normal 850 - 3900 {cells/uL} [facility].; [employer], [facility]. Lymphocytes/100 WBC (Bld) 32.1 % Normal [facility].; [employer], [facility] MCH (RBC) [Entitic mass] 23.1 pg Abnormal 27. 0 - 33.0 pg [employer] [facility].; [employer], [facility]. MCHC (RBC) [Mass/Vol] 30.9 g/dL Abnormal 32.0 - 36.0 g/dL [facility].; [employer], [employer]. MCV (RBC) [Entitic vol] 74.7 fL Abnormal 80.0 - 100.0 fL [facility] [employer] [facility].; [employer], [facility]. Monocytes (Bld) [#/Vol] 0.27 10*3/uL Normal 200 - 950 {cells/uL} [employer].; [employer]. Monocytes/100 WBC (Bld) 5.2 % Normal [facility].; [facility], [facility]. Neutrophils (Bld) [#/Vol] 3.177 10*3/uL Normal 1500 - 7800 {cells/uL} [facility].; [employer] Neutrophils/100 WBC (Bld) 61.1 % Normal [facility].; [employer]. Platelet mean volume (Bld) [Entitic vol] 12.3 fL Normal 7.5 - 12.5 fL [facility] [employer] [facility].; [employer], [employer]. Platelets (Bld) [#/Vol] 281 10*3/uL Normal 140 - 400 [employer], [employer]. RBC (Bld) [#/Vol] 4.90 10*6/uL Normal 3.80 - 5.10 {Million/u L} [employer].; [employer]. WBC (Bld) [#/Vol] 5.2 10*3/uL Normal 3.8 - 10.8 [employer] No Panel Informationon 10-02 JAS SCREEN, IFA Negative Normal [facility] [employer] [facility]; [employer]. RHEUMATOID FACTOR <14 Normal [employer]. Laboratory - Chemistry and C hemistry - challengeon 06-30-2018 Follitropin Qn 3.0 m[IU]/mL Normal [employer] [facility].; [employer]. Testosterone [Mass/Vol] 21 ng/dL Normal 2 - 45 ng/dL [employer].; [employer], [employer]. TSH Qn 1.16 m[IU]/L Normal 0.40 - 4.50 {mIU/L} [employer].; [employer]. Laboratory - Hematology and Cell countson 06-30-2018 Basophils (Bld) [#/Vol] 20 {Cells}/uL Normal 0 - 200 {Cells}/uL [employer]. Basophils/100 WBC (Bld) 0 % Normal 0 - 1 % H [facility].; [facility], [facility] Eosinophils (Bld) [#/Vol] 50 {Cells}/uL Normal 15 - 500 {Cells}/uL [facility].; [facility], [facility] Eosinophils/100 WBC (Bld) 1 % Normal 0 - 4 % [facility].; [facility], [facility] Erythrocyte distribution width (RBC) [Ratio] 13.9 % Normal 11.0 - 15.0 % [facility].; [facility], [facility] Hematocrit (Bld) [Volume fraction] 39.9 % Normal 35.0 - 45.0 % [facility], [facility].; [facility], [facility] Hemoglobin (Bld) [Mass/Vol] 13.4 g/dL Normal 11.7 - 15.5 g/dL [facility].; [facility], [facility] Lymphocytes (Bld) [#/Vol] 1190 {Cells}/uL Normal 850 - 3900 {Cells}/uL [facility].; [employer] [facility], [facility] Lymphocytes/100 WBC (Bld) 16 % Normal 12 - 47 % [facility].; [facility], [facility]. MCH (RBC) [Entitic mass] 26.9 pg Abnormal 27. 0 - 33.0 PG [facility].; [employer] [facility], [facility]. MCHC (RBC) [Mass/Vol] 33.6 g/dL Normal 32.0 - 36.0 g/dL [facility].; [employer] [facility], [facility]. MCV (RBC) [Entitic vol] 80.1 fL Normal 80.0 - 100.0 fL [facility].; [employer] [facility], [facility]. Monocytes (Bld) [#/Vol] 190 {Cells}/uL Abnormal 20 0 - 950 {Cells}/uL [facility].; [facility], [facility]. Monocytes/100 WBC (Bld) 3 % Abnormal 4 - 12 % [facility].; [facility], [facility]. Neutrophils (Bld) [#/Vol] 6060 {Cells}/uL Normal 1500 - 7800 {Cells}/uL [facility].; [employer]. Neutrophils/100 WBC (Bld) 81 % Abnormal 40 - 75 % [employer].; [employer]. Platelet mean volume (Bld) [Entitic vol] 11.5 fL Normal 7.5 - 12.5 fL [employer].; [employer], [employer]. Platelets (Bld) [#/Vol] 239 10*3/uL Normal 140 - 400 10*3/uL [facility] [employer]. RBC (Bld) [#/Vol] 4.98 10*6/uL Normal 3.80 - 5.10 10*6/uL [employer]. WBC (Bld) [#/Vol] 7.5 10*3/uL Normal 3.8 - 10.8 10*3/uL [employer]. Laboratory - Chemistry and C hemistry - challengeon 11-14-2016 CRP [Mass/Vol] 0.6 mg/dL Normal [employer]. TSH Qn 2.40 m[IU]/L Normal 0.40 - 4.50 {mIU/L} [employer]. Laboratory - Cytologyon 10-30 Microscopic observation Cyto stain Nom (Cvx) Normal [employer] [facility].; [employer]. Laboratory - Hematology and Cell countson 11-14-2016 Basophils (Bld) [#/Vol] 20 {Cells}/uL Normal 0 - 200 {Cells}/uL [employer]. Basophils/100 WBC (Bld) 0 % Normal 0 - 1 % [facility].; [employer]. Eosinophils (Bld) [#/Vol] 60 {Cells}/uL Normal 15 - 500 {Cells}/uL [employer].; [employer], [employer]. Eosinophils/100 WBC (Bld) 1 % Normal 0 - 4 % [employer].; [employer]. Erythrocyte distribution width (RBC) [Ratio] 13.9 % Normal 11.0 - 15.0 % [facility].; [facility], [facility]. Hematocrit (Bld) [Volume fraction] 38.9 % Normal 35.0 - 45.0 % [facility], [facility].; [facility], [facility]. Hemoglobin (Bld) [Mass/Vol] 12.6 g/dL Normal 11.7 - 15.5 g/dL [facility], [facility].; [facility], [facility]. Lymphocytes (Bld) [#/Vol] 1920 {Cells}/uL Normal 850 - 3900 {Cells}/uL [facility], [facility].; [facility], [facility]. Lymphocytes/100 WBC (Bld) 23 % Normal 12 - 47 % [facility], [facility].; [facility], [facility]. MCH (RBC) [Entitic mass] 25.9 pg Abnormal 27. 0 - 33.0 PG [facility], [facility].; [employer], [facility]. MCHC (RBC) [Mass/Vol] 32.3 g/dL Normal 32.0 - 36.0 g/dL [facility], [facility].; [employer], [facility]. MCV (RBC) [Entitic vol] 80.0 fL Normal 80.0 - 100.0 fL [facility], [facility].; [facility], [facility]. Monocytes (Bld) [#/Vol] 300 {Cells}/uL Normal 20 0 - 950 {Cells}/uL [facility], [facility].; [employer], [facility]. Monocytes/100 WBC (Bld) 4 % Normal 4 - 12 % [facility].; [facility], [facility]. Neutrophils (Bld) [#/Vol] 5920 {Cells}/uL Normal 1500 - 7800 {Cells}/uL [facility], [facility].; [employer], [facility]. Neutrophils/100 WBC (Bld) 72 % Normal 40 - 75 % [facility].; [employer] [facility], [facility]. Platelet mean volume (Bld) [Entitic vol] 11.5 fL Normal 7.5 - 12.5 fL [facility], [facility].; [employer], [facility]. Platelets (Bld) [#/Vol] 215 10*3/uL Normal 140 - 400 10*3/uL [facility].; [facility], [facility] RBC (Bld) [#/Vol] 4.86 10*6/uL Normal 3.80 - 5.10 10*6/uL [facility].; [facility], [facility]. WBC (Bld) [#/Vol] 8.2 10*3/uL Normal 3.8 - 10.8 10*3/uL [facility].; [facility], [facility] Laboratory - Serology - non- microon 11-14-2016 Nuclear Ab IF (S) [Titer] <1:40 Normal [facility]; [facility], [facility] Rheumatoid factor Qn 8 [IU]/mL Normal [facility] [employer] [facility], [facility] Vital Signs Date Time Vital Sign Value Performing Clinician Facility 09-23-2024 11:00-0400 Body height 171.45 cm Johnathon Dougherty LPN [facility], [facility].; [facility], [facility] 09-23-2024 11:00-0400 Body mass index (BMI) [Ratio] 34.41 kg/m2 Johnathon Dougherty LPN [facility], [facility].; [facility] [employer] [facility], [facility]. 09-23-2024 11:00-0400 Body surface area Derived from formula 2.13 m2 Johnathon Dougherty LPN [facility], [facility].; [employer] [facility], [facility]. 09-23-2024 11:00-0400 Body weight 101.15 kg Johnathon Dougherty LPN [facility], [facility].; [employer] [facility], [facility]. 09-23-2024 11:00-0400 Diastolic blood pressure 82 mm[Hg] Johnathon Dougherty LPN [facility].; [employer] [facility]. Comment on above: Patient Position: Sitting; Cuff Location : Left Arm; Cuff Size: Standard 09-23-2024 11:00-0400 Heart rate 69 /min Johnathon Dougherty LPN [facility], [facility].; [employer], [facility]. Comment on above: Pattern: Regular 09-23-2024 11:00-0400 Systolic blood pressure 125 mm[Hg] Johnathon Dougherty LPN [facility], [facility].; [employer], [facility]. Comment on above: Patient Position: Sitting; Cuff Location : Left Arm; Cuff Size: Standard 03-09-2024 11:02-0400 Body height 171.45 cm [facility], [facility].; [facility], [facility]. 03-09-2024 11:02-0400 Body mass index (BMI) [Ratio] 34.41 kg/m2 [place] [facility].; [facility], [facility]. 03-09-2024 11:02040 Body surface area Derived from formula 2.13 m2 [facility], [facility].; [facility] [employer] [facility], [facility]. 03-09-2024 11:02-040 Body temperature 99.6 [degF] [facility], [facility].; [employer], [employer]. Comment on above: Method: Tympanic 03-09-2024 11:02040 Body [facility] 101.15 [facility], [facility].; [facility] [employer] [facility], [employer]. 03-09-2024 11:02-0400 Diastolic blood pressure 72 mm[Hg] [facility], [facility].; [employer], [employer]. Comment on above: Patient Position: Sitting; Cuff Location : Left Arm; Cuff Size: Standard 03-09-2024 11:02-0400 Heart rate 56 /min [facility], [facility].; [employer]. Comment on above: Pattern: Regular 03-09-2024 11:02-0400 Systolic blood pressure 109 mm[Hg] [facility], [facility].; [employer], [employer]. Comment on above: Patient Position: Sitting; Cuff Location : Left Arm; Cuff Size: Standard 09-09-2023 14:15-0400 Body height 171.45 cm Mayte Lake [facility], [facility].; [facility] [employer] [facility] 09-09-2023 14:15-0400 Body mass index (BMI) [Ratio] 34.26 kg/m2 Mayte Montejo Aleksandra [facility], [facility].; [employer], [employer]. 09-09-2023 14:15-0400 Body surface area Derived from formula 2.13 m2 Mayte Montejo Aleksandra [facility], [facility].; [facility]. 09-09-2023 14:15040 Body weight 100.7 kg Mayte Montejo Aleksandra [facility].; [facility]. 09-09-2023 14:15-0400 Diastolic blood pressure 81 mm[Hg] Mayte Montejo Aleksandra [facility].; [facility]. Comment on above: Patient Position: Sitting; Cuff Location : Right Arm; Cuff Size: Standard 09-09-2023 14:15-0400 Heart rate 59 /min Mayte Gustabo Aleksandra [facility].; [facility], [facility]. Comment on above: Pattern: Regular 09-09-2023 14:15-0400 Systolic blood pressure 124 mm[Hg] Mayte Montejo Aleksandra [facility].; [facility]. Comment on above: Patient Position: Sitting; Cuff Location : Right Arm; Cuff Size: Standard 05-21-2023 08:25-0500 Body temperature 97.5 [degF] Dr. Geoff Mcleod Work Phone: [facility] 05-21-2023 08:25-0500 Heart rate 51 /min Dr. Geoff Mcleod Work Phone: [facility] 05-21-2023 08:25-0500 Respiratory rate 18 /min Dr. Geoff Mcleod Work Phone: [facility] 05-21-2023 08:25-0500 SaO2% (BldA) [Mass fraction] 100 % Dr. Geoff Mcleod Work Phone: [facility] 05-21-2023 08:20-0500 Diastolic blood pressure 61 mm[Hg] Dr. Geoff Mcleod Work Phone: [facility] 05-21-2023 08:20-0500 Systolic blood pressure 105 mm[Hg] Dr. Geoff Mcleod Work Phone: [facility] 05-21-2023 07:14-0500 Body height 170.[address] Geoff Mcleod Work Phone: [facility] 05-21-2023 07:14-0500 Body mass index (BMI) [Ratio] 33.7 kg/m2 Dr. Geoff Mcleod Work Phone: [facility] 05-21-2023 07:14-0500 Body weight 97.[address] Geoff Mcleod Work Phone: [facility] 04-08-2023 11:06-0500 Body temperature 97.9 [degF] Guilherme Looney LPN [facility], [facility].; [facility], [facility]. 04-08-2023 11:06-0500 Body weight 98.88 kg Guilherme Aayush [employer] [facility], [facility].; [facility] [employer] [facility], [facility] 04-08-2023 11:06-0500 Diastolic blood pressure 78 mm[Hg] Guilherme Aayush [employer] [facility], [facility].; [employer] [facility] Comment on above: Patient Position: Sitting; Cuff Location : Left Arm; Cuff Size: Standard 04-08-2023 11:06-0500 Heart rate 66 /min Guilherme Aayush [employer] [facility].; [facility] Comment on above: Pattern: Regular 04-08-2023 11:06-0500 Inhaled oxygen concentration 20 % Guilherme Looney [employer] [facility], [facility].; [employer] Comment on above: Room air 04-08-2023 11:06-0500 Inhaled oxygen concentration 21 % Guilherme Looney [employer] [facility], [facility].; [employer], [employer] Comment on above: Room air 04-08-2023 11:06-0500 SaO2% (BldA) [Mass fraction] 100 % Guilherme Aayush [facility], [facility].; [employer], [employer] 04-08-2023 11:06-0500 Systolic blood pressure 114 mm[Hg] Guilherme Looney [employer] [facility].; [employer], [employer]. Comment on above: Patient Position: Sitting; Cuff Location : Left Arm; Cuff Size: Standard 10-02-2022 11:02-0400 Body height 171.45 cm Mayte Silverach [employer] [facility].; [employer] [facility] 10-02-2022 11:02-0400 Body mass index (BMI) [Ratio] 33.95 kg/m2 Mayte Lake [facility].; [employer] [facility] 10-02-2022 11:02-0400 Body surface area Derived from formula 2.12 m2 Mayte Silverach [facility] [employer] [facility], [facility].; [employer], [employer] 10-02-2022 11:02-0400 Body weight 99.79 kg Mayte Lake [facility] [employer] [facility], [facility].; [employer], [employer] 10-02-2022 11:02-0400 Diastolic blood pressure 79 mm[Hg] Mayte Lake [facility], [facility].; [employer], [employer] Comment on above: Patient Position: Sitting; Cuff Location : Right Arm; Cuff Size: Standard 10-02-2022 11:02-0400 Heart rate 64 /min Mayte Lake [facility], [facility].; [employer], [employer] Comment on above: Pattern: Regular 10-02-2022 11:02-0400 Systolic blood pressure 122 mm[Hg] Mayte Lake [employer] [facility].; [employer], [employer] Comment on above: Patient Position: Sitting; Cuff Location : Right Arm; Cuff Size: Standard 08-07-2021 11:01-0500 Body height 171.45 cm Mayte Yanezlabach [employer] [facility].; [employer], [employer] 08-07-2021 11:01-0500 Body mass index (BMI) [Ratio] 32.87 kg/m2 Mayte Lake [facility] [employer] [facility], [facility].; [employer], [employer] 08-07-2021 11:01-0500 Body surface area Derived from formula 2.09 m2 Mayte Yanezlabach [employer] [facility] [employer] [facility].; [employer], [employer] 08-07-2021 11:01-0500 Body weight 96.62 kg Mayte Silverach [facility] [employer], [employer].; [employer]. 08-07-2021 11:01-0500 Diastolic blood pressure 81 mm[Hg] Mayte Silverach [employer] [facility] [employer] [facility].; [employer]. Comment on above: Patient Position: Sitting; Cuff Location : Right Arm; Cuff Size: Standard 08-07-2021 11:01-0500 Heart rate 73 /min Mayte Montejo Aleksandra [employer] [facility] [employer] [facility].; [employer]. Comment on above: Pattern: Regular 08-07-2021 11:01-0500 Systolic blood pressure 129 mm[Hg] Mayte Yanezlabach [employer] [facility] [employer]. Comment on above: Patient Position: Sitting; Cuff Location : Right Arm; Cuff Size: Standard 07-06-2020 09:29-0500 Body height 171.7 cm Mayte Montejo Aleksandra RAMOS [employer] [facility], [facility].; [employer] 07-06-2020 09:29-0500 Body mass index (BMI) [Ratio] 31.23 kg/m2 Mayte Montejo Aleksandra [employer] [facility] [employer] [facility].; [employer], [employer]. 07-06-2020 09:29-0500 Body surface area Derived from formula 2.05 m2 Mayte Yanezlabach [employer] [facility] [employer] [facility].; [employer], [employer] 07-06-2020 09:29-0500 Body weight 92.08 kg Mayte Montejo Aleksandra RAMOS [employer], [employer].; [employer]. 07-06-2020 09:29-0500 Diastolic blood pressure 70 mm[Hg] Mayte Silverach [employer]. Comment on above: Patient Position: Sitting; Cuff Location : Left Arm; Cuff Size: Standard 07-06-2020 09:29-0500 Heart rate 57 /min Mayte Montejo Aleksandra [employer]. Comment on above: Pattern: Regular 07-06-2020 09:29-0500 Systolic blood pressure 118 mm[Hg] Mayte Montejo Aleksandra [employer].; [facility] Comment on above: Patient Position: Sitting; Cuff Location : Left Arm; Cuff Size: Standard 12-05-2019 13:14-0400 Body height 171.7 cm Pauline Jeanrohan RAMOS [facility].; [employer], [employer] 12-05-2019 13:14-0400 Body mass index (BMI) [Ratio] 31.23 kg/m2 Pauline German RAMOS [facility].; [employer], [employer] 12-05-2019 13:14-0400 Body surface area Derived from formula 2.05 m2 Pauline German RAMOS [facility].; [employer], [employer] 12-05-2019 13:14-0400 Body weight 92.08 kg Pauline German RAMOS [facility].; [employer], [employer]. 12-05-2019 13:14-0400 Diastolic blood pressure 74 mm[Hg] Pauline German RAMOS [facility].; [employer], [employer] Comment on above: Patient Position: Sitting; Cuff Location : Left Arm; Cuff Size: Standard 12-05-2019 13:14-0400 Heart rate 72 /min Paulineleora Porter LPN [facility].; [employer], [employer] Comment on above: Pattern: Regular 12-05-2019 13:14-0400 Systolic blood pressure 134 mm[Hg] Pauline German RAMOS [facility].; [employer], [employer] Comment on above: Patient Position: Sitting; Cuff Location : Left Arm; Cuff Size: Standard 08-30-2018 09:59-0400 Body height 171.7 cm Pauline Werohan RAMOS [facility].; [employer], [employer]. 08-30-2018 09:59-0400 Body mass index (BMI) [Ratio] 33.08 kg/m2 Pauline Werohan RAMOS [facility].; [employer], [employer] 08-30-2018 09:59-0400 Body surface area Derived from formula 2.1 m2 Pauline Porter LPN [employer], [employer].; [employer] 08-30-2018 09:59-0400 Body weight 97.52 kg Pauline Jeanrohan RAMOS [employer], [employer].; [employer] [employer] 08-30-2018 09:59-0400 Diastolic blood pressure 84 mm[Hg] Paluine German RAMOS [employer], [employer].; [employer], [employer] Comment on above: Patient Position: Sitting; Cuff Location : Left Arm; Cuff Size: Standard 08-30-2018 09:59-0400 Heart rate 74 /min Paulineleora Porter LPN [employer], [employer].; [employer], [employer] Comment on above: Pattern: Regular 08-30-2018 09:59-0400 Systolic blood pressure 118 mm[Hg] Pauline German RAMOS [employer], [employer].; [employer], [employer] Comment on above: Patient Position: Sitting; Cuff Location : Left Arm; Cuff Size: Standard 06-30-2018 09:26-0500 Body height 171.7 cm Paulineleora Porter LPN [employer], [employer].; [employer] [employer] 06-30-2018 09:26-0500 Body mass index (BMI) [Ratio] 34.31 kg/m2 Pauline German RAMOS [employer].; [employer] 06-30-2018 09:26-0500 Body surface area Derived from formula 2.13 m2 Paluine Porter LPN [employer].; [employer] 06-30-2018 09:26-0500 Body weight 101.15 kg Pauline German RAMOS [employer].; [employer], [employer] 06-30-2018 09:26-0500 Diastolic blood pressure 85 mm[Hg] Pauline German LONGON [employer], [employer].; [employer], [employer] Comment on above: Patient Position: Sitting; Cuff Location : Left Arm; Cuff Size: Standard 06-30-2018 09:26-0500 Heart rate 103 /min Pauline Porter LPN [employer], [employer].; [employer], [employer] Comment on above: Pattern: Regular 06-30-2018 09:26-0500 Systolic blood pressure 122 mm[Hg] Pauline German LONGON [facility] [employer] [facility], [employer].; [employer], [employer]. Comment on above: Patient Position: Sitting; Cuff Location : Left Arm; Cuff Size: Standard 05-28-2018 09:25-0500 Body height 171.7 cm Marley K Mutersbaugh [employer] [facility] [employer] [facility], [facility].; [employer]. 05-28-2018 09:25-0500 Body mass index (BMI) [Ratio] 35.54 kg/m2 Marley K Mutersbaugh [employer], [employer].; [employer], [employer]. 05-28-2018 09:25-0500 Body surface area Derived from formula 2.16 m2 Marley K Mutersbaugh [employer] [facility] [employer] [facility], [employer].; [employer], [employer]. 05-28-2018 09:25-0500 Body weight 104.78 kg Marley K Mutersbaugh [employer], [employer].; [employer], [employer]. 05-28-2018 09:25-0500 Diastolic blood pressure 82 mm[Hg] Marley K Mutersbaugh [employer], [employer].; [employer], [employer]. Comment on above: Patient Position: Sitting; Cuff Location : Left Arm; Cuff Size: Standard 05-28-2018 09:25-0500 Heart rate 80 /min Marley K Mutersbaugh [employer] [facility], [employer].; [employer], [employer]. Comment on above: Pattern: Regular 05-28-2018 09:25-0500 Systolic blood pressure 127 mm[Hg] Marley K Mutersbaugh [employer], [employer].; [employer], [employer]. Comment on above: Patient Position: Sitting; Cuff Location : Left Arm; Cuff Size: Standard 07-17-2017 09:45-0500 Body height 171.7 cm Pauline Porter LPN [employer].; [employer]. 07-17-2017 09:45-0500 Body mass index (BMI) [Ratio] 31.54 kg/m2 Pauline German RAMOS [facility].; [employer], [employer] 07-17-2017 09:45-0500 Body surface area Derived from formula 2.06 m2 Pauline German RAMOS [facility].; [employer], [employer] 07-17-2017 09:45-0500 Body weight 92.99 kg Pauline German RAMOS [facility].; [employer] 07-17-2017 09:45-0500 Diastolic blood pressure 85 mm[Hg] Pauline German RAMOS [facility].; [employer], [employer] Comment on above: Patient Position: Sitting; Cuff Location : Left Arm; Cuff Size: Standard 07-17-2017 09:45-0500 Heart rate 73 /min Pauline German RAMOS [facility].; [employer], [employer] Comment on above: Pattern: Regular 07-17-2017 09:45-0500 Systolic blood pressure 124 mm[Hg] Pauline German RAMOS [facility] [employer] [facility].; [employer] Comment on above: Patient Position: Sitting; Cuff Location : Left Arm; Cuff Size: Standard 02-16-2017 09:21-0400 Body height 171.7 cm Pauline German RAMOS [facility] [employer] [facility].; [employer] 02-16-2017 09:21-0400 Body mass index (BMI) [Ratio] 31.69 kg/m2 Pauline German RAMOS [facility] [employer] [facility].; [employer] 02-16-2017 09:21-0400 Body surface area Derived from formula 2.06 m2 Pauline German RAMOS [employer], [employer].; [employer] 02-16-2017 09:21-0400 Body weight 93.44 kg Pauline German RAMOS [facility] [employer] [facility].; [employer] 02-16-2017 09:21-0400 Diastolic blood pressure 79 mm[Hg] Pauline German RAMOS [employer].; [employer] Comment on above: Patient Position: Sitting; Cuff Location : Left Arm; Cuff Size: Standard 02-16-2017 09:21-0400 Heart rate 70 /min Pauline Jeanrohan LONGON [employer].; [employer] Comment on above: Pattern: Regular 02-16-2017 09:21-0400 Systolic blood pressure 121 mm[Hg] Pauline Jeanhaydenerd [employer] Comment on above: Patient Position: Sitting; Cuff Location : Left Arm; Cuff Size: Standard 12-04-2016 13:45-0400 Body height 171.7 cm [facility]ine Werohan [facility], Inc.; [employer], [employer] 12-04-2016 13:45-0400 Body mass index (BMI) [Ratio] 31.69 kg/m2 Pauline Werohan LONGON [employer].; [employer] 12-04-2016 13:45-0400 Body surface area Derived from formula 2.06 m2 Pauline Tedrohan LONGON [employer].; [employer] 12-04-2016 13:45-0400 Body weight 93.44 kg Pauline Jeanrohan [employer] 12-04-2016 13:45-0400 Diastolic blood pressure 78 mm[Hg] Pauline Blossomd [employer] Comment on above: Patient Position: Sitting; Cuff Location : Left Arm; Cuff Size: Standard 12-04-2016 13:45-0400 Heart rate 66 /min Pauline Wejerid [employer] Comment on above: Pattern: Regular 12-04-2016 13:45-0400 Systolic blood pressure 119 mm[Hg] Pauline Jeanjerid [employer] Comment on above: Patient Position: Sitting; Cuff Location : Left Arm; Cuff Size: Standard 11-14-2016 10:40-0400 Body height 171.7 cm Pauline Wejerid [employer] 11-14-2016 10:40-0400 Body mass index (BMI) [Ratio] 32 kg/m2 Pauline German RAMOS [facility] [employer] [facility], [facility].; [employer] 11-14-2016 10:40-0400 Body surface area Derived from formula 2.07 m2 Pauline Porter LPN [facility] [employer] [facility].; [employer] 11-14-2016 10:40-0400 Body weight 94.35 kg Pauline Porter LPN [facility] [employer] [facility], [facility].; [employer], [employer]. 11-14-2016 10:40-0400 Diastolic blood pressure 84 mm[Hg] Pauline German RAMOS [facility] [employer] [facility].; [employer]. Comment on above: Patient Position: Sitting; Cuff Location : Left Arm; Cuff Size: Standard 11-14-2016 10:40-0400 Heart rate 69 /min Pauline Porter LPN [employer]. Comment on above: Pattern: Regular 11-14-2016 10:40-0400 Systolic blood pressure 119 mm[Hg] Pauline Jeanrohan RAMOS [employer].; [employer]. Comment on above: Patient Position: Sitting; Cuff Location : Left Arm; Cuff Size: Standard 06-30-2016 15:34-0500 Body height 170.18 cm Jelena Durham PA-C Work Phone: [employer].; [employer] 06-30-2016 15:34-0500 Diastolic blood pressure 83 mm[Hg] Jelena Durham PA-C Work Phone: [employer].; [employer]. Comment on above: Patient Position: Sitting; Cuff Location : Left Arm; Cuff Size: Large 06-30-2016 15:34-0500 Heart rate 80 /min Jelena Durham PA-C Work Phone: [employer].; [employer]. Comment on above: Pattern: Regular 06-30-2016 15:34-0500 Systolic blood pressure 129 mm[Hg] Jelena Durham PA-C Work Phone: [employer]; [employer]. Comment on above: Patient Position: Sitting; Cuff Location : Left Arm; Cuff Size: Large 06-18-2016 08:10-0500 Body height 170.18 cm Jelena Durham PA-C Work Phone: [employer]; [employer]. 06-18-2016 08:10-0500 Body mass index (BMI) [Ratio] 30.7 kg/m2 Jelena Durham PA-C Work Phone: [employer]; [employer]. 06-18-2016 08:10-0500 Body surface area Derived from formula 2 m2 Jelena Durham PA-C Work Phone: [employer]; [employer]. 06-18-2016 08:10-0500 Body temperature 100.5 [degF] Jelena Durham PA-C Work Phone: [employer]; [employer]. Comment on above: Method: Tympanic 06-18-2016 08:10-0500 Body weight 88.91 kg Jelena Durham PA-C Work Phone: [employer]; [employer]. 06-18-2016 08:10-0500 Diastolic blood pressure 76 mm[Hg] Jelena Durham PA-C Work Phone: [employer]; [employer]. Comment on above: Patient Position: Sitting; Cuff Location : Right Arm; Cuff Size: Large 06-18-2016 08:10-0500 Heart rate 83 /min Jelena Durham PA-C Work Phone: [employer]; [employer]. Comment on above: Pattern: Regular 06-18-2016 08:10-0500 Systolic blood pressure 113 mm[Hg] Jelena Durham PA-C Work Phone: [employer]; [employer]. Comment on above: Patient Position: Sitting; Cuff Location : Right Arm; Cuff Size: Large 03-10-2016 08:33-0400 Body height 170.18 cm Jelena Durham PA-C Work Phone: [employer] 03-10-2016 08:33-0400 Body mass index (BMI) [Ratio] 30.95 kg/m2 Jelena Durham PA-C Work Phone: [employer] 03-10-2016 08:33-0400 Body surface area Derived from formula 2.01 m2 Jelena Durham PA-C Work Phone: [employer]; [employer]. 03-10-2016 08:33-0400 Body temperature 98.4 [degF] Jelena Durham PA-C Work Phone: [employer]; [employer]. Comment on above: Method: Tympanic 03-10-2016 08:33-0400 Body weight 89.63 kg Jelena Durham PA-C Work Phone: [employer]; [employer]. 03-10-2016 08:33-0400 Diastolic blood pressure 76 mm[Hg] Jelena Durham PA-C Work Phone: [employer]; [employer]. Comment on above: Patient Position: Sitting; Cuff Location : Left Arm; Cuff Size: Standard 03-10-2016 08:33-0400 Heart rate 70 /min Jelena Durham PA-C Work Phone: [employer]; [employer]. Comment on above: Pattern: Regular 03-10-2016 08:33-0400 Inhaled oxygen concentration 20 % Jelena Durham PA-C Work Phone: [employer]; [employer]. Comment on above: Room air 03-10-2016 08:33-0400 Inhaled oxygen concentration 21 % Jelena Durham PA-C Work Phone: [employer].; [employer]. Comment on above: Room air 03-10-2016 08:33-0400 SaO2% (BldA) [Mass fraction] 99 % Jelena Durham PA-C Work Phone: [employer].; [employer]. 03-10-2016 08:33-0400 Systolic blood pressure 117 mm[Hg] Jelena Dodgeer PA-C Work Phone: [employer].; [employer]. Comment on above: Patient Position: Sitting; Cuff Location : Left Arm; Cuff Size: Standard 02-15-2016 08:120400 Body height 170.18 cm Pauline Porter LPN [facility] [employer] [facility].; [employer]. 02-15-2016 08:12-0400 Body mass index (BMI) [Ratio] 30.7 kg/m2 Pauline Porter LPN [facility] [employer], [employer]. 02-15-2016 08:120400 Body surface area Derived from formula 2 m2 Pauline Porter LPN [employer].; [employer], [employer]. 02-15-2016 08:12-0400 Body temperature 98.7 [degF] Pauline Porter LPN [employer]. Comment on above: Method: Tympanic 02-15-2016 08:12-0400 Body weight 88.91 kg Pauline Porter LPN [employer]. 02-15-2016 08:12-0400 Diastolic blood pressure 68 mm[Hg] Pauline Porter LPN [employer].; [employer]. Comment on above: Patient Position: Sitting; Cuff Location : Left Arm; Cuff Size: Standard 02-15-2016 08:12-0400 Heart rate 66 /min Pauline Porter LPN [employer] [facility] Comment on above: Pattern: Regular 02-15-2016 08:12-0400 Inhaled oxygen concentration 20 % Pauline Porter LPN [facility] [employer]. Comment on above: Room air 02-15-2016 08:12-0400 Inhaled oxygen concentration 21 % Pauline Porter LPN [facility] [employer]. Comment on above: Room air 02-15-2016 08:12-0400 SaO2% (BldA) [Mass fraction] 99 % Pauline Porter [facility] [employer]. 02-15-2016 08:12-0400 Systolic blood pressure 106 mm[Hg] Pauline Porter [facility] [employer]. Comment on above: Patient Position: Sitting; Cuff Location : Left Arm; Cuff Size: Standard 12-19-2015 15:54-0400 Body height 170.18 cm [facility] [employer], [employer]. 12-19-2015 15:54-0400 Body mass index (BMI) [Ratio] 29.76 kg/m2 Pauline Porter [facility] [employer] [facility].; [employer], [employer]. 12-19-2015 15:54-0400 Body surface area Derived from formula 1.98 m2 Pauline Porter [facility] [employer] [facility].; [employer], [employer]. 12-19-2015 15:54-0400 Body weight 86.18 kg [facility] [employer] [facility], [facility] [employer]. 12-19-2015 15:54-0400 Diastolic blood pressure 86 mm[Hg] Pauline Porter [facility] [employer] [facility], [employer]. Comment on above: Patient Position: Sitting; Cuff Location : Left Arm; Cuff Size: Standard 12-19-2015 15:54-0400 Heart rate 79 /min Pauline [facility] [employer] [facility], [facility].; [employer]. Comment on above: Pattern: Regular 12-19-2015 15:54-0400 Systolic blood pressure 134 mm[Hg] Pauline Cerratoceleste [facility], [facility].; [employer]. Comment on above: Patient Position: Sitting; Cuff Location : Left Arm; Cuff Size: Standard 12-20-2014 13:00-0400 Body height 170.18 cm Marley Rebeca Braunersbaugh [employer] [facility], [facility].; [employer] 12-20-2014 13:00-0400 Body mass index (BMI) [Ratio] 30.38 kg/m2 Marley K Mutersbaugh [employer] [facility] [employer] [facility], [facility].; [employer] [facility]. 12-20-2014 13:00-0400 Body surface area Derived from formula 2 m2 Marley K Mutersbaugh [employer] [facility] [employer] [facility], [facility].; [employer], [employer]. 12-20-2014 13:00-0400 Body weight 88 kg Marley Rebeca Braunersbaugh [employer] [facility] [employer] [facility].; [employer]. 12-20-2014 13:00-0400 Diastolic blood pressure 72 mm[Hg] Marley K Mutersbaugh [employer] [facility], [employer]. Comment on above: Patient Position: Sitting; Cuff Location : Left Arm; Cuff Size: Standard 12-20-2014 13:00-0400 Heart rate 59 /min Marley Rebeca Braunersbaugh [employer] [facility] [employer] [facility].; [employer]. Comment on above: Pattern: Regular 12-20-2014 13:00-0400 Systolic blood pressure 117 mm[Hg] Marley K Mutersbaugh [employer]. Comment on above: Patient Position: Sitting; Cuff Location : Left Arm; Cuff Size: Standard 12-11-2014 08:30-0400 Body temperature 97.8 [degF] Jelena Durham PA-C Work Phone: [facility] [employer] [facility].; [employer]. Comment on above: Method: Tympanic 12-11-2014 08:30-0400 Body weight 88 kg Jelena Durham PA-C Work Phone: [employer].; [employer]. 12-11-2014 08:30-0400 Diastolic blood pressure 71 mm[Hg] Jelena Durham PA-C Work Phone: [employer].; [employer]. Comment on above: Patient Position: Sitting; Cuff Location : Left Arm; Cuff Size: Standard 12-11-2014 08:30-0400 Heart rate 64 /min Jelena Durham PA-C Work Phone: [employer].; [employer]. Comment on above: Pattern: Regular 12-11-2014 08:30-0400 Systolic blood pressure 118 mm[Hg] Jelena Durham PA-C Work Phone: [employer].; [employer]. Comment on above: Patient Position: Sitting; Cuff Location : Left Arm; Cuff Size: Standard 03-10-2014 09:50-0400 Body weight 88 kg Chaya Lyons LPN [employer] [facility].; [employer]. 03-10-2014 09:50-0400 Diastolic blood pressure 82 mm[Hg] Chaya Lyons LPN [employer].; [employer]. Comment on above: Patient Position: Sitting; Cuff Location : Left Arm; Cuff Size: Standard 03-10-2014 09:50-0400 Heart rate 88 /min Chaya Lyons LPN [employer].; [employer]. Comment on above: Pattern: Regular 03-10-2014 09:50-0400 Systolic blood pressure 127 mm[Hg] Chaya Lyons LPN [employer].; [employer]. Comment on above: Patient Position: Sitting; Cuff Location : Left Arm; Cuff Size: Standard 03-25-2013 10:18-0400 Body weight 84.82 kg Chaya Lyons LPN [employer], [employer].; [employer]. 03-25-2013 10:18-0400 Diastolic blood pressure 66 mm[Hg] Chaya Lyons LPN [employer].; [employer]. Comment on above: Patient Position: Sitting; Cuff Location : Left Arm; Cuff Size: Standard 03-25-2013 10:18-0400 Heart rate 71 /min Chaya Lyons LPN [employer]. Comment on above: Pattern: Regular 03-25-2013 10:18-0400 Systolic blood pressure 99 mm[Hg] Chaya Lyons LPN [employer]. Comment on above: Patient Position: Sitting; Cuff Location : Left Arm; Cuff Size: Standard 02-22-2013 09:53-0400 Body height 170.18 cm Jelena Durham PA-C Work Phone: [employer] 02-22-2013 09:53-0400 Body mass index (BMI) [Ratio] 29.29 kg/m2 Jelena Durham PA-C Work Phone: [employer].; [employer]. 02-22-2013 09:53-0400 Body surface area Derived from formula 1.97 m2 Jelena Durham PA-C Work Phone: [employer].; [employer]. 02-22-2013 09:53-0400 Body weight 84.82 kg Jelena Durham PA-C Work Phone: [employer]. 02-22-2013 09:53-0400 Diastolic blood pressure 71 mm[Hg] Jelena Durham PA-C Work Phone: [employer]. Comment on above: Patient Position: Sitting; Cuff Location : Left Arm; Cuff Size: Large 02-22-2013 09:53-0400 Heart rate 50 /min Jelena Durham PA-C Work Phone: [employer]. Comment on above: Pattern: Regular 02-22-2013 09:53-0400 Systolic blood pressure 106 mm[Hg] Jelena Durham PA-C Work Phone: [employer]. Comment on above: Patient Position: Sitting; Cuff Location : Left Arm; Cuff Size: Large 02-08-2013 09:48-0400 Body height 170.18 cm Jelena Durham PA-C Work Phone: [employer]; [employer]. 02-08-2013 09:48-0400 Body mass index (BMI) [Ratio] 29.29 kg/m2 Jelena Durham PA-C Work Phone: [employer]; [employer]. 02-08-2013 09:48-0400 Body surface area Derived from formula 1.97 m2 Jelena Durham PA-C Work Phone: [employer]; [employer]. 02-08-2013 09:48-0400 Body temperature 99.4 [degF] Jelena Durham PA-C Work Phone: [employer]; [employer]. Comment on above: Method: Tympanic 02-08-2013 09:48-0400 Body weight 84.82 kg Jelena Durham PA-C Work Phone: [employer]; [employer]. 02-08-2013 09:48-0400 Diastolic blood pressure 73 mm[Hg] Jelena Durham PA-C Work Phone: [employer]; [employer]. Comment on above: Patient Position: Sitting; Cuff Location : Left Arm; Cuff Size: Large 02-08-2013 09:48-0400 Heart rate 66 /min Jelena Durham PA-C Work Phone: [employer]; [employer]. Comment on above: Pattern: Regular 02-08-2013 09:48-0400 Inhaled oxygen concentration 20 % Jelena Durham PA-C Work Phone: [employer]; [facility] Comment on above: Room air 02-08-2013 09:48-0400 Inhaled oxygen concentration 21 % Jelena Durham PA-C Work Phone: [employer]. Comment on above: Room air 02-08-2013 09:48-0400 SaO2% (BldA) [Mass fraction] 98 % Jelena Dodgeer PA-C Work Phone: [employer]; [employer]. 02-08-2013 09:48-0400 Systolic blood pressure 109 mm[Hg] Jelena Dodgeer PA-C Work Phone: [employer]; [employer]. Comment on above: Patient Position: Sitting; Cuff Location : Left Arm; Cuff Size: Large Encounters Encounter Date Encounter Type Care Provider Facility Start: 11-18-2024 ambulatory Toro [place] Facility :[facility] Start: 11-08-2024 End: 11-08-2024 Patient encounter procedure Torojoanne Nugent DO -[facility] Work Phone: Start: 11-08-2024 End: 11-08-2024 ambulatory Jelena Durham PA Work Phone: [facility] Work Phone: Start: 10-04-2024 End: 10-04-2024 ambulatory JELENA DURHAM [facility] Start: 09-23-2024 End: 09-23-2024 Office outpatient visit 25 minutes Jelena Dodgeer PA-C Work Phone: [employer]. Start: 09-23-2024 Review Jelena Dodgeer PA-C Work Phone: [employer] Start: 05-17-2024 End: 05-17-2024 ambulatory JELENA DURHAM [facility] Start: 05-03-2024 End: 05-03-2024 ambulatory [facility] Start: 04-15-2024 End: 04-15-2024 Orders Jelena Durham PA-C Work Phone: [employer]. Start: 03-09-2024 Review [facility]el[facility] Durham [facility]C [facility] Start: 03-09-2024 End: 03-09-2024 Office outpatient visit 15 minutes Jelena Dodgeer PA-C Work Phone: [employer]. Start: 03-09-2024 Review Jelena Durham PA-C Work Phone: [employer]. Start: 09-10-2023 End: 09-10-2023 ambulatory PA Jelena Durham PA Work Phone: [facility] Work Phone: Start: 09-10-2023 End: 09-10-2023 Patient encounter procedure PA Jelena Durham PA Work Phone: [facility] Work Phone: Start: 09-09-2023 End: 09-09-2023 Office outpatient visit 25 minutes Jelena Dodgeer PA-C Work Phone: [employer] Start: 09-09-2023 Follow-up encounter Jelena pappas PA-C Work Phone: [employer]. Start: 05-21-2023 Non-patient / Non-visit Dr. Geoff Mcleod Work Phone: [facility] Start: 05-21-2023 End: 05-21-2023 Admission to same day surgery center Dr. Geoff Mcleod Work Phone: [facility] Work Phone: Start: 05-21-2023 End: 05-21-[address] Geoff Mcleod Work Phone: [facility] Work Phone: Start: 04-08-2023 End: 04-08-2023 Office outpatient visit 15 minutes Jelenajose maria Dodgeer PA-C Work Phone: [employer]. Start: 03-12-2023 End: 03-12-[address] Geoff Mcleod Work Phone: [facility] Work Phone: Start: 03-12-2023 End: 03-12-[address] Geoff Mcleod Work Phone: [facility] Work Phone: Start: 03-12-2023 End: 03-12-[address] Geoff Mcleod Work Phone: [facility] Work Phone: Start: 10-03-2022 End: 10-03-2022 Orders Jelena Durham PA-C Work Phone: [facility] Start: 10-02-2022 End: 10-02-2022 Office outpatient visit 25 minutes Jelena Durham PA-C Work Phone: [facility] Start: 09-02-2021 End: 09-02-2021 Orders Jelena Durham PA-C Work Phone: [facility] Start: 08-07-2021 End: 08-07-2021 Patient encounter procedure Jelena Durham PA-C Work Phone: [facility] Start: 06-12-2021 End: 06-12-2021 Medication Jelena Durham PA-C Work Phone: [employer]. Start: 07-06-2020 End: 07-06-2020 Patient encounter procedure Jelena Durham PA-C Work Phone: [facility] Start: 12-05-2019 End: 12-05-2019 Office outpatient visit 25 minutes Jelena Durham PA-C Work Phone: [facility] Start: 08-30-2018 End: 08-30-2018 Office outpatient visit 15 minutes Jelena Durham PA-C Work Phone: [facility] Start: 07-01-2018 End: 07-01-2018 Medication Jelena Durham PA-C Work Phone: [employer]. Start: 06-30-2018 End: 06-28-2018 Historical Summary Jelena BRENNAN-C Work Phone: [employer]. Start: 06-30-2018 End: 07-01-2018 Patient encounter procedure Jelena BRENNAN-C Work Phone: [employer]. Start: 06-02-2018 End: 06-02-2018 Medication Jelena Durham PA-C Work Phone: [employer]. Start: 05-28-2018 End: 05-31-2018 Patient encounter procedure Jelena BRENNAN-C Work Phone: [employer]. Start: 09-23-2017 End: 09-23-2017 Telephone follow-up Jelena BRENNAN-C Work Phone: [employer]. Start: 09-23-2017 End: 09-23-2017 Medication Jelena BRENNAN-C Work Phone: [employer]. Start: 08-28-2017 End: 08-28-2017 Orders Jelena Durham PA-C Work Phone: [employer]. Start: 07-17-2017 End: 07-17-2017 Office outpatient visit 15 minutes Jelena Durham PA-C Work Phone: [employer]. Start: 06-25-2017 End: 06-25-2017 Medication Jelena Durham PA-C Work Phone: [employer]. Start: 02-16-2017 End: 02-16-2017 Office outpatient visit 15 minutes Jelenajose maria Dodgeer PA-C Work Phone: [employer]. Start: 12-04-2016 End: 12-04-2016 Office outpatient visit 15 minutes Jelenajose maria Dodgeer PA-C Work Phone: [employer] Start: 11-14-2016 End: 11-19-2016 Patient encounter status Jelena Durham PA-C Work Phone: [employer]. Start: 11-14-2016 End: 11-19-2016 [facility] preventive med est patient 18-39 yrs Jelena Durham PA-C Work Phone: [employer]. Start: 06-30-2016 End: 06-30-2016 Patient encounter procedure Jelena Durham PA-C Work Phone: [employer]. Start: 06-18-2016 End: 06-18-2016 Office outpatient visit 15 minutes Jelena Durham PA-C Work Phone: [employer]. Start: 03-10-2016 End: 03-10-2016 Patient encounter procedure Jelena Durham PA-C Work Phone: [employer]. Start: 02-15-2016 End: 02-15-2016 Patient encounter procedure Jelena Durham PA-C Work Phone: [employer]. Start: 12-27-2015 End: 12-27-2015 Medication Jelena BRENNAN-C Work Phone: [employer]. Start: 12-19-2015 End: 12-19-2015 Patient encounter procedure Jelena Durham PA-C Work Phone: [facility] Start: 12-20-2014 End: 12-20-2014 Office outpatient visit 15 minutes Jelena Durham PA-C Work Phone: [employer]. Start: 12-11-2014 End: 12-11-2014 Patient encounter procedure Jelena Durham PA-C Work Phone: [employer]. Start: 11-24-2014 End: 11-24-2014 Patient encounter procedure Jelena Dodgeer PA-C Work Phone: [facility] Start: 03-10-2014 End: 03-10-2014 Office outpatient visit 15 minutes Jelenajose maria Dodgeer PA-C Work Phone: [facility] Start: 03-25-2013 End: 03-25-2013 Patient encounter procedure Jelena Durham PA-C Work Phone: [facility] Start: 02-22-2013 End: 02-22-2013 Patient encounter procedure Jelena Durham PA-C Work Phone: [facility] Start: 02-08-2013 End: 02-08-2013 Patient encounter procedure Jelena Dodgeer PA-C [facility] Phone: [facility] Patient encounter status Pauline Cerratoceleste LOGNON [facility].; [facility] Procedures Date Procedure Procedure Detail Performing Clinician Start: 09-23-2024 End: 10-05-2024 TTE w or wo Saba davenporter PA-C Work Phone: Start: 05-01-2024 End: 05-01-2024 Screening mammography Johnathon Dougherty LPN Start: 04-15-2024 End: 05-18-2024 Mri breast without&with contrast w/cad bilateral Jelena J Durham PA-C Work Phone: Start: 03-09-2024 End: 05-04-2024 Screening digital breast tomosynthesis bi Jelena J Durham PA-C Work Phone: Start: 05-21-2023 EGD - PH Probe (Not Applicable) Dr. Geoff Mcleod Work Phone: Start: 10-02-2022 End: 11-05-2022 Screening digital breast tomosynthesis bi Jelena Myers Durham PA-C Work Phone: Start: 10-02-2022 End: 10-30-2022 Us pelvic nonobstetric real-time image complete Jelena J Durham PA-C Work Phone: Start: 08-07-2021 End: 08-30-2021 Screening digital breast tomosynthesis bi Jelena J Durham PA-C Work Phone: Start: 08-07-2021 End: 08-22-2021 Us lmtd joint/oth nonvasc xtr strux r-t w/img Jelena Myers Durham PA-C Work Phone: Start: 06-30-2018 End: 06-30-2018 Thyrotropin [Units/volume] in Serum or Plasma Pauline Porter LPN Comment on above: 1.16 Start: 07-17-2017 End: 07-17-2017 Body mass index documented Jelena Myers Attila brian PA-C Work Phone: Start: 07-17-2017 End: 07-17-2017 Most recent diastolic blood pressure 80-89 mm hg Jelena Myers Durham PA-C Work Phone: Start: 07-17-2017 End: 07-17-2017 Most recent systolic blood pressure <130 mm hg Jelena Myers Durham PA-C Work Phone: Start: 07-17-2017 End: 07-27-2017 Us breast uni real time with image complete Jelena Myers Durham PA-C Work Phone: Start: 07-17-2017 End: 07-27-2017 Screening mammography Pauline FLEMING Comment on above: Abnormal. right adriana st u/s wnl Start: 11-14-2016 End: 11-14-2016 Microscopic examination of cervical Papanicolaou smear Pauline Porter LPN Comment on above: Normal. 3 yr Start: 11-14-2016 End: 11-20-2016 Us breast uni real time with image complete Geoff Mcleod MD Work Phone: Start: 11-14-2016 End: 11-19-2016 Removal intrauterine device iud Jelena Myers Durham PA-C Work Phone: Start: 11-24-2014 End: 11-24-2014 Dup-scan xtr veins unilateral/limited study Jelena Myres Durham PA-C Work Phone: Start: 03-10-2014 End: 06-09-2018 Mri spinal canal lumbar w/o contrast material Geoff Mcleod MD Work Phone: Start: 02-22-2013 End: 02-25-2013 Radex shoulder complete minimum 2 views Geoff Mcleod MD Work Phone: Start: 06-01-2010 End: 06-01-2010 tooth extractions Jelena Lucia Durham PA- C Work Phone: Comment on above: [facility] Start: 06-01-2008 End: 06-01-2008 Ligation of fallopian tube Jelena Myers Attila brian PA-C Work Phone: Start: 06-01-2007 End: 06-01-2007 laser-kidney stone breakup Jelena Myers Attila brian PA-C Work Phone: Comment on above: [facility] Start: 06-01-1990 End: 06-01-1990 femur broken-traction Jelena Myers Herminio P A-C Work Phone: Comment on above: jph Cholecystectomy Jelena Lucia Brennan lmer PA-C Work Phone: Comment on above: 2020 Cholecystectomy Jelena Myers Javan lmer PA-C Work Phone: Comment on above: 2020 Plan of Treatment Date Care Activity Detail Author Start: 09-23-2024 End: 09-26-2024 TTE w or wo fol wcon,Doppler [facility] [employer]. Start: 04-15-2024 End: 04-20-2024 Mri breast without&with contrast w/cad bilateral [facility] [employer] [facility] [employer] Start: 03-09-2024 Screening digital breast tomosynthesis bi Mammogram 3D (tomosynthesis), bilateral (35960) Start: 09-Mar-2024 Intent [employer] Start: 03-09-2024 End: 03-14-2024 Ct limited/localized follow up study [employer], [employer]. Start: 09-10-2023 Aldolase [Enzymatic activity/volume] in Serum or Plasma [facility] Start: 09-10-2023 Aldosterone and renin activity panel - Plasma [facility] Start: 09-10-2023 Antibody to gastric parietal cell measurement [facility] Start: 04-11-2024 Gastrin [Mass/volume] in Serum or Plasma [facility] Start: 09-10-2023 Intrinsic factor blocking Ab [Units/volume] in Serum [facility] Start: 09-10-2023 [facility] Start: 09-09-2023 Comprehensive metabolic panel CMP w/ GFR* (02375) Start: 09-Sep-2023 14:56-04:00 Request [employer]; [employer] Start: 09-09-2023 Assay of thyroid stimulating hormone tsh TSH W/ REFL FREE T4 (31217,[id number]) (60574) Start: 09-Sep-2023 14:56-04:00 Request [employer]; [employer]. Start: 09-09-2023 Assay of iron IRON TOTAL (40999) Start: 09-Sep-2023 14:56-04:00 Request [employer]; [employer]. Start: 09-09-2023 Assay of ferritin FERRITIN (59387) Start: 09-Sep-2023 14:56-04:00 Request [employer]; [employer] Start: 09-09-2023 Blood count complete auto&auto difrntl wbc CBC, PLATELETS & AUT DIFF (F) (94196) Start: 09-Sep-2023 14:56-04:00 Request [facility]; [facility] Start: 09-09-2023 Patient encounter procedure Medical; EXTENDED RTN - f/u meds [employer]. Start: 09-Sep-2023 14:20-04:00 JESSICA Durham Appointment Request [employer] Start: 05-21-2023 Egd transoral biopsy single/multiple EGD BIOPSY SINGLE/MULTIPLE [facility] Start: 05-21-2023 Gastroesophag reflx test w/telemtry ph eltrd G-ESOPH REFLX TST W/ELECTROD [facility] Start: 05-21-[address] [facility] Start: 10-30-2022 Blood count complete auto&auto difrntl wbc [facility]; [employer]. 5-Hydroxyindoleaceta te [Mass/volume] in [address] [facility] Aldosterone [Mass/vo lume] in Serum or Plasma [facility] Aldosterone/Renin [R atio] in Plasma [facility] C reactive protein [Mass/volume] in Serum or Plasma [facility] Erythrocyte sediment ation rate [facility] Gastrin [Mass/volume ] in Serum or Plasma [facility] Patient referral [facility] Work Phone: Procedure [facility] Radionuclide gastric emptying study [facility] Radionuclide gastric emptying study [facility] Radionuclide imaging of liver and/or biliary tract using radioactive isotope [facility] Renin [Enzymatic activity/volume] in Plasma [facility] Immunizations Immunization Date Immunization Notes Care Provider Kortney william 06-01-2015 TD(adult) unspecifie d formulation Jelena Durham PA-C Work Phone: [facility], [employer] [facility], [facility]. Payers Date Payer Category Payer Self-pay [id number] 2024 Unknown [id number] 2007 Unknown [employer] [id number] 1982 Unknown [id number] 1982 Unknown [id number] 1982 Unknown [id number] Unknown [employer] [id number] Unknown [employer] Unknown [id number] .. [id number] Unknown [id number] .. [id number] Social History Date Type Detail Facility Start: 03-12-2023 End: 09-10-2023 Tobacco smoking status AKIS Unknown if ever smoked [facility] Start: 1980 Sex Assigned At Female [facility] Alcohol Use: Alcohol Use: ; Occasional alcohol use. [facility]; [facility] Caffeine Use Caffeine Use [facility]; [employer] Tobacco Use: Tobacco Use: ; C urrent every day smoker. [facility]; [facility] Occasional alcohol use [employer]; [employer]. Work Phone: Smokes tobacco daily [facility]; [employer]. Work Phone: Start: 09-10-2023 Tobacco smoking status NHIS Ex-smoker (finding) [facility] NEGATED: Highlighted row [facility] Medical Equipment Procedure Code Equipment Code Equipment Original Text Equipment Identifier Dates Gastrointestinal telemetric monitoring system [id number] Start: 05-21-2023 Goals Date Patient Goal Desired Activity /State Mental Status Date Assessment Result Facility 05-21-2023 Cognitive function Level Of Consciousness Sedated [facility] Work Phone: Procedure note 05-21-2023 Note Date & Type Note Facility 05-21-2023 Procedure note [facility] Procedure note 05-21-2023 Note Date & Type Note Facility 05-21-2023 Procedure note [facility] Evaluation note Note Date & Type Note Facility Evaluation note Diagnosis Onset Date Abdominal pain acute GERD (gastroesophageal reflux disease) acute [facility] Work Phone: Evaluation note Note Date & Type Note Facility Evaluation note Diagnosis Onset Date Abdominal pain chronic GERD (gastroesophageal reflux disease) chronic [facility] Work Phone: Evaluation note Note Date & Type Note Facility Evaluation note [facility]: History and physical note Note Date & Type Note Facility History and physical note Note Date/Time May 21, 2023 7:53am [facility] Medical Records Department [address] [place] [address] History & Physical Exam 05/21/23 0752 MR#: [id number] Acct: [id number] Name: SAMANTA HUNT Rep #:[id number] : 1980 43 From: Toro Friend DO PCP: JAVAN Delgado Status:[facility] Location: [place] [address] History and Physical Date of Admission: 05/21/23 43 F who presents to the office today for initial consult. PMH HPV+, anxiety/depression, arthritis/polyarthralgia/fibromyalgia. GI Hx Kolb?s esophagus, GERD, hiatal hernia, abdominal bloating? PCP OV 10.07.22 noting history of Kolb?s esophagus. PPI continues but is symptomatic if dose missed.? ? OV 03.12.23 Pt states life long hx of GERD. Sx increased in 2020. Cholecystectomy mid 2020. EGD 08.20.21 at [facility] noting barretts and moderate HH. Has changed diet and was most recently put on Pantoprazole 40mg BID. Helpful forstomach cramps but still continues to have HB with reflux. Bowels are normal andconsistent. Exam Const General: cooperative and comfortable Nutritional Appearance: average body habitus and well nourished [facility] Head: normal to inspection Ears: hearing grossly normal bilaterally Nose: external nose normal Face and sinus: normal facial exam Mouth: oral mucosae normal Throat: posterior oropharynx normal Eyes General: appearance normal, both eyes and all related structures Neck Neck: normal visual inspection Chest Chest palpation & inspection: normal inspection of the chest and normal palpation of entire chest wall Resp Effort & Inspection: normal respiratory effort Auscultation: Bilateral: Clear to Auscultation Cardio Palpation: normal PMI Rate: regular rate Rhythm: regular rhythm GI Inspection: normal to inspection Auscultation: normal bowel sounds Percussion: normal to percussion Palpation: no hepatosplenomegaly Skin General: no rashes or lesions noted Neuro General: patient alert Extrem General: normal to inspection Psych Affect: normal affect Quality Reporting Tobacco Screening ([facility] 138) Smoking Status: Current every day smoker Assessment and Plan Assessment and Plan (1) Abdominal pain: Status: Acute Qualifiers: Abdominal location: epigastric Qualified Code(s): R10.13 - Epigastric pain (2) GERD (gastroesophageal reflux disease): Status: Acute Qualifiers: Esophagitis presence: without esophagitis Qualified Code(s): K21.9 - Gastro-esophageal reflux disease without esophagitis Plan: 43-year-old with longstanding history of gastroesophageal reflux disease diagnosed at 16 years old. She has had refractory disease to 40 mg of omeprazole twice a day and currently pantoprazole 40 mg twice a day and regarding her reflux disease. 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 She was also noted did have a small sliding hiatal hernia without any underlying Osmar's erosions, Nallely-Freedman tear or any motility problems associated with that. She said that she had an upper GI study that also showed a hiatal hernia. On her upper endoscopy there was no note of inflammation, portal gastropathy, gastric antral vascular ectasia or H. pylori infection in her stomach. There was also no note of villous atrophy in the small bowel or any signs of eosinophilia in the stomach, duodenum or esophagus. She does smoke cigarettes, but has been cutting down and she is also been avoiding spicy foods, alcohol, chocolate and coffee. She gets intermittent right upper quadrant pain and she is postcholecystectomy. This also comes along with bloating. The differential diagnosis for her symptoms does include nonerosive reflux disease, eosinophilic esophagitis, irritable bowel syndrome, celiac disease, hypergastrinemia secondary to PPI therapy. She should undergo an upper endoscopy with [place] pH study, possible esophageal motility and a gastric emptying study. She should also get a HIDA scan to see if there is any signs of bile acid reflux. She will get blood work today to see if there is any underlying autoimmune disease contributing to poor motility of the upper GI tract and to see if there is any associated food allergy. Orders: Orders Allergen, Food Profile 14 Today K21.9 - Gastro-esophageal reflux disease withoutesophagitis, R10.9 - Unspecified abdominal pain JACKI + Protein Elect, Serum Today K21.9 - Gastro-esophageal reflux disease without esophagitis, R10.9 - Unspecified abdominal pain CBC W/Diff, Automated Today K21.9 - Gastro-esophageal reflux disease without esophagitis, R10.9 - Unspecified abdominal pain ANCA Today K21.9 - Gastro-esophageal reflux disease without esophagitis, R10.9 -Unspecified abdominal pain Celiac Disease Profile Today K21.9 - Gastro-esophageal reflux disease without esophagitis, R10.9 - Unspecified abdominal pain CRP Today K21.9 - Gastro-esophageal reflux disease without esophagitis, R10.9 - Unspecified abdominal pain Erythrocyte Sed Rate Today K21.9 - Gastro-esophageal reflux disease without esophagitis, R10.9 - Unspecified abdominal pain Immunoglobulin A Today K21.9 - Gastro-esophageal reflux disease without esophagitis, R10.9 - Unspecified abdominal pain Immunoglobulin E Today K21.9 - Gastro-esophageal reflux disease without esophagitis, R10.9 - Unspecified abdominal pain Immunoglobulin G Today K21.9 - Gastro-esophageal reflux disease without esophagitis, R10.9 - Unspecified abdominal pain Immunoglobulin M Today K21.9 - Gastro-esophageal reflux disease without esophagitis, R10.9 - Unspecified abdominal pain Comprehensive Metabolic Profil Today K21.9 - Gastro-esophageal reflux disease without esophagitis, R10.9 - Unspecified abdominal pain Amylase Today K21.9 - Gastro-esophageal reflux disease without esophagitis, R10.9 - Unspecified abdominal pain Lipase Today K21.9 - Gastro-esophageal reflux disease without esophagitis, R10.9- Unspecified abdominal pain Hemoglobin A1c Today K21.9 - Gastro-esophageal reflux disease without esophagitis, R10.9 - Unspecified abdominal pain JAS Comprehensive Panel Today K21.9 - Gastro-esophageal reflux disease without esophagitis, R10.9 - Unspecified abdominal pain Thyroid Stim Hormone (TSH) Today K21.9 - Gastro-esophageal reflux disease without esophagitis, R10.9 - Unspecified abdominal pain Gastric Emptying Study Today K21.9 - Gastro-esophageal reflux disease without esophagitis, R10.9 - Unspecified abdominal pain Hepatobilliary Imaging Today K21.9 - Gastro-esophageal reflux disease without esophagitis, R10.9 - Unspecified abdominal pain I have examined the patient and the H&P has been reviewed. There are no clinicalchanges since date of exam. 05/21/23 1346 <Electronically signed by Toro Nugent DO> Cosigner Signature (if applicable): CC: JAVAN Delgado; Toro Friend, DO~ Signed [facility] Work Phone: Reason for referral (narrative) Note Date & Type Note Facility Reason for referral (narrative) No reason for referral information available [facility] Work Phone: Summary Purpose Family History No Family History Records Found Relationship Condition Age at Onset Recorded Date/T renzo mother Malignant neoplasm of ovary Unknown arthritis Status:Active Comments:Mother. grandmother, aunt Breast Cancer Status:Active Comments:Paterjae l Grandmother. Mother. Mom diagnosed at age 53 Diabetes Mellitus Type II Status:Active Commen ts:Maternal Grandmother. Paternal Grandmother. Fibromyalgia Status:Active Comments:Mother. Hypertension Status:Active Comments:Father. mom- fibrocycstic breast disease Status:Active mom- hemangioma, liver, spin e cancer Status:Active mom- narcolepsy Status:Active Ovarian Cancer Status:Active Comments:Mother. arthritis Status:Active Comments:Mother. grandmother, aunt Breast Cancer Status:Active Comments:Abbey l Grandmother. Mother. Mom diagnosed at age 53 Diabetes Mellitus Type II Status:Active Commen ts:Maternal Grandmother. Paternal Grandmother. Fibromyalgia Status:Active Comments:Mother. Hypertension Status:Active Comments:Father. mom- fibrocycstic breast disease Status:Active mom- hemangioma, liver, spin e cancer Status:Active mom- narcolepsy Status:Active Ovarian Cancer Status:Active Comments:Mother. arthritis Status:Active Comments:Mother. grandmother, aunt Breast Cancer Status:Active Comments:Paterjae l Grandmother. Mother. Mom diagnosed at age 53 Diabetes Mellitus Type II Status:Active Commen ts:Maternal Grandmother. Paternal Grandmother. Fibromyalgia Status:Active Comments:Mother. Hypertension Status:Active Comments:Father. mom- fibrocycstic breast disease Status:Active mom- hemangioma, liver, spin e cancer Status:Active mom- narcolepsy Status:Active Ovarian Cancer Status:Active Comments:Mother. arthritis Status:Active Comments:Mother. grandmother, aunt Breast Cancer Status:Active Comments:Abbey l Grandmother. Mother. Mom diagnosed at age 53 Diabetes Mellitus Type II Status:Active Commen ts:Maternal Grandmother. Paternal Grandmother. Fibromyalgia Status:Active Comments:Mother. Hypertension Status:Active Comments:Father. mom- fibrocycstic breast disease Status:Active mom- hemangioma, liver, spin e cancer Status:Active mom- narcolepsy Status:Active Ovarian Cancer Status:Active Comments:Mother. arthritis Status:Active Comments:Mother. grandmother, aunt Breast Cancer Status:Active Comments:Abbey zhou Grandmother. Mother. Mom diagnosed at age 53 Diabetes Mellitus Type II Status:Active Commen ts:Maternal Grandmother. Paternal Grandmother. Fibromyalgia Status:Active Comments:Mother. Hypertension Status:Active Comments:Father. mom- fibrocycstic breast disease Status:Active mom- hemangioma, liver, spin e cancer Status:Active mom- narcolepsy Status:Active Ovarian Cancer Status:Active Comments:Mother. arthritis Status:Active Comments:Mother. grandmother, aunt Breast Cancer Status:Active Comments:Abbey zhou Grandmother. Mother. Mom diagnosed at age 53 Diabetes Mellitus Type II Status:Active Commen ts:Maternal Grandmother. Paternal Grandmother. Fibromyalgia Status:Active Comments:Mother. Hypertension Status:Active Comments:Father. mom- fibrocycstic breast disease Status:Active mom- hemangioma, liver, spin e cancer Status:Active mom- narcolepsy Status:Active Ovarian Cancer Status:Active Comments:Mother. arthritis Status:Active Comments:Mother. grandmother, aunt Breast Cancer Status:Active Comments:Abbey zhou Grandmother. Mother. Mom diagnosed at age 53 Diabetes Mellitus Type II Status:Active Commen ts:Maternal Grandmother. Paternal Grandmother. Fibromyalgia Status:Active Comments:Mother. Hypertension Status:Active Comments:Father. mom- fibrocycstic breast disease Status:Active mom- hemangioma, liver, spin e cancer Status:Active mom- narcolepsy Status:Active Ovarian Cancer Status:Active Comments:Mother. arthritis Status:Active Comments:Mother. grandmother, aunt Breast Cancer Status:Active Comments:Abbey zhou Grandmother. Mother. Mom diagnosed at age 53 Diabetes Mellitus Type II Status:Active Commen ts:Maternal Grandmother. Paternal Grandmother. Fibromyalgia Status:Active Comments:Mother. Hypertension Status:Active Comments:Father. mom- fibrocycstic breast disease Status:Active mom- hemangioma, liver, spin e cancer Status:Active mom- narcolepsy Status:Active Ovarian Cancer Status:Active Comments:Mother. arthritis Status:Active Comments:Mother. grandmother, aunt Breast Cancer Status:Active Comments:Abbey zhou Grandmother. Mother. Mom diagnosed at age 53 Diabetes Mellitus Type II Status:Active Commen ts:Maternal Grandmother. Paternal Grandmother. Fibromyalgia Status:Active Comments:Mother. Hypertension Status:Active Comments:Father. mom- fibrocycstic breast disease Status:Active mom- hemangioma, liver, spin e cancer Status:Active mom- narcolepsy Status:Active Ovarian Cancer Status:Active Comments:Mother. arthritis Status:Active Comments:Mother. grandmother, aunt Breast Cancer Status:Active Comments:Abbey l Grandmother. Mother. Mom diagnosed at age 53 Diabetes Mellitus Type II Status:Active Commen ts:Maternal Grandmother. Paternal Grandmother. Fibromyalgia Status:Active Comments:Mother. Hypertension Status:Active Comments:Father. mom- fibrocycstic breast disease Status:Active mom- hemangioma, liver, spin e cancer Status:Active mom- narcolepsy Status:Active Ovarian Cancer Status:Active Comments:Mother. arthritis Status:Active Comments:Mother. grandmother, aunt Breast Cancer Status:Active Comments:Abbey zhou Grandmother. Mother. Mom diagnosed at age 53 Diabetes Mellitus Type II Status:Active Commen ts:Maternal Grandmother. Paternal Grandmother. Fibromyalgia Status:Active Comments:Mother. Hypertension Status:Active Comments:Father. mom- fibrocycstic breast disease Status:Active mom- hemangioma, liver, spin e cancer Status:Active mom- narcolepsy Status:Active Ovarian Cancer Status:Active Comments:Mother. arthritis Status:Active Comments:Mother. grandmother, aunt Breast Cancer Status:Active Comments:Abbey zhou Grandmother. Mother. Mom diagnosed at age 53 Diabetes Mellitus Type II Status:Active Commen ts:Maternal Grandmother. Paternal Grandmother. Fibromyalgia Status:Active Comments:Mother. Hypertension Status:Active Comments:Father. mom- fibrocycstic breast disease Status:Active mom- hemangioma, liver, spin e cancer Status:Active mom- narcolepsy Status:Active Ovarian Cancer Status:Active Comments:Mother. arthritis Status:Active Comments:Mother. grandmother, aunt Breast Cancer Status:Active Comments:Abbey l Grandmother. Mother. Mom diagnosed at age 53 Diabetes Mellitus Type II Status:Active Commen ts:Maternal Grandmother. Paternal Grandmother. Fibromyalgia Status:Active Comments:Mother. Hypertension Status:Active Comments:Father. mom- fibrocycstic breast disease Status:Active mom- hemangioma, liver, spin e cancer Status:Active mom- narcolepsy Status:Active Ovarian Cancer Status:Active Comments:Mother. arthritis Status:Active Comments:Mother. grandmother, aunt Breast Cancer Status:Active Comments:Libertyna l Grandmother. Mother. Mom diagnosed at age 53 Diabetes Mellitus Type II Status:Active Commen ts:Maternal Grandmother. Paternal Grandmother. Fibromyalgia Status:Active Comments:Mother. Hypertension Status:Active Comments:Father. mom- fibrocycstic breast disease Status:Active mom- hemangioma, liver, spin e cancer Status:Active mom- narcolepsy Status:Active Ovarian Cancer Status:Active Comments:Mother. arthritis Status:Active Comments:Mother. grandmother, aunt Breast Cancer Status:Active Comments:Abbey l Grandmother. Mother. Mom diagnosed at age 53 Diabetes Mellitus Type II Status:Active Commen ts:Maternal Grandmother. Paternal Grandmother. Fibromyalgia Status:Active Comments:Mother. Hypertension Status:Active Comments:Father. mom- fibrocycstic breast disease Status:Active mom- hemangioma, liver, spin e cancer Status:Active mom- narcolepsy Status:Active Ovarian Cancer Status:Active Comments:Mother. arthritis Status:Active Comments:Mother. grandmother, aunt Breast Cancer Status:Active Comments:Paterna l Grandmother. Mother. Mom diagnosed at age 53 Diabetes Mellitus Type II Status:Active Commen ts:Maternal Grandmother. Paternal Grandmother. Fibromyalgia Status:Active Comments:Mother. Hypertension Status:Active Comments:Father. mom- fibrocycstic breast disease Status:Active mom- hemangioma, liver, spin e cancer Status:Active mom- narcolepsy Status:Active Ovarian Cancer Status:Active Comments:Mother. arthritis Status:Active Comments:Mother. grandmother, aunt Breast Cancer Status:Active Comments:Libertyna l Grandmother. Mother. Mom diagnosed at age 53 Diabetes Mellitus Type II Status:Active Commen ts:Maternal Grandmother. Paternal Grandmother. Fibromyalgia Status:Active Comments:Mother. Hypertension Status:Active Comments:Father. mom- fibrocycstic breast disease Status:Active mom- hemangioma, liver, spin e cancer Status:Active mom- narcolepsy Status:Active Ovarian Cancer Status:Active Comments:Mother. arthritis Status:Active Comments:Mother. grandmother, aunt Breast Cancer Status:Active Comments:Paterna l Grandmother. Mother. Mom diagnosed at age 53 Diabetes Mellitus Type II Status:Active Commen ts:Maternal Grandmother. Paternal Grandmother. Fibromyalgia Status:Active Comments:Mother. Hypertension Status:Active Comments:Father. mom- fibrocycstic breast disease Status:Active mom- hemangioma, liver, spin e cancer Status:Active mom- narcolepsy Status:Active Ovarian Cancer Status:Active Comments:Mother. arthritis Status:Active Comments:Mother. grandmother, aunt Breast Cancer Status:Active Comments:Paterna l Grandmother. Mother. Mom diagnosed at age 53; recurrence at 61 - double mastectomy done Cervical Cancer Status:Active Comments:Mother. Diabetes Mellitus Type II Status:Active Commen ts:Maternal Grandmother. Paternal Grandmother. Fibromyalgia Status:Active Comments:Mother. Hypertension Status:Active Comments:Father. mom- fibrocycstic breast disease Status:Active mom- hemangioma, liver, spin e cancer Status:Active mom- narcolepsy Status:Active Ovarian Cancer Status:Active Comments:Mother. arthritis Status:Active Comments:Mother. grandmother, aunt Breast Cancer Status:Active Comments:Paterna l Grandmother. Mother. Mom diagnosed at age 53; recurrence at 61 - double mastectomy done Cervical Cancer Status:Active Comments:Mother. Diabetes Mellitus Type II Status:Active Commen ts:Maternal Grandmother. Paternal Grandmother. Fibromyalgia Status:Active Comments:Mother. Hypertension Status:Active Comments:Father. mom- fibrocycstic breast disease Status:Active mom- hemangioma, liver, spin e cancer Status:Active mom- narcolepsy Status:Active Ovarian Cancer Status:Active Comments:Mother. arthritis Status:Active Comments:Mother. grandmother, aunt Breast Cancer Status:Active Comments:Paterna l Grandmother. Mother. Mom diagnosed at age 53; recurrence at 61 - double mastectomy done Cervical Cancer Status:Active Comments:Mother. Diabetes Mellitus Type II Status:Active Commen ts:Maternal Grandmother. Paternal Grandmother. Fibromyalgia Status:Active Comments:Mother. Hypertension Status:Active Comments:Father. mom- fibrocycstic breast disease Status:Active mom- hemangioma, liver, spin e cancer Status:Active mom- narcolepsy Status:Active Ovarian Cancer Status:Active Comments:Mother. arthritis Status:Active Comments:Mother. grandmother, aunt Breast Cancer Status:Active Comments:Paterjae zhou Grandmother. Mother. Mom diagnosed at age 53; recurrence at 61 - double mastectomy done Cervical Cancer Status:Active Comments:Mother. Diabetes Mellitus Type II Status:Active Commen ts:Maternal Grandmother. Paternal Grandmother. Fibromyalgia Status:Active Comments:Mother. Hypertension Status:Active Comments:Father. mom- fibrocycstic breast disease Status:Active mom- hemangioma, liver, spin e cancer Status:Active mom- narcolepsy Status:Active Ovarian Cancer Status:Active Comments:Mother. arthritis Status:Active Comments:Mother. grandmother, aunt Breast Cancer Status:Active Comments:Abbey zhou Grandmother. Mother. Mom diagnosed at age 53; recurrence at 61 - double mastectomy done Cervical Cancer Status:Active Comments:Mother. Diabetes Mellitus Type II Status:Active Commen ts:Maternal Grandmother. Paternal Grandmother. Fibromyalgia Status:Active Comments:Mother. Hypertension Status:Active Comments:Father. mom- fibrocycstic breast disease Status:Active mom- hemangioma, liver, spin e cancer Status:Active mom- narcolepsy Status:Active Ovarian Cancer Status:Active Comments:Mother. arthritis Status:Active Comments:Mother. grandmother, aunt Breast Cancer Status:Active Comments:Abbey zhou Grandmother. Mother. Mom diagnosed at age 53; recurrence at 61 - double mastectomy done Cervical Cancer Status:Active Comments:Mother. Diabetes Mellitus Type II Status:Active Commen ts:Maternal Grandmother. Paternal Grandmother. Fibromyalgia Status:Active Comments:Mother. Hypertension Status:Active Comments:Father. mom- fibrocycstic breast disease Status:Active mom- hemangioma, liver, spin e cancer Status:Active mom- narcolepsy Status:Active Ovarian Cancer Status:Active Comments:Mother. arthritis Status:Active Comments:Mother. grandmother, aunt Breast Cancer Status:Active Comments:Abbey zhou Grandmother. Mother. Mom diagnosed at age 53; recurrence at 61 - double mastectomy done Cervical Cancer Status:Active Comments:Mother. Diabetes Mellitus Type II Status:Active Commen ts:Maternal Grandmother. Paternal Grandmother. Fibromyalgia Status:Active Comments:Mother. Hypertension Status:Active Comments:Father. mom- fibrocycstic breast disease Status:Active mom- hemangioma, liver, spin e cancer Status:Active mom- narcolepsy Status:Active Ovarian Cancer Status:Active Comments:Mother. arthritis Status:Active Comments:Mother. grandmother, aunt Breast Cancer Status:Active Comments:Paterna l Grandmother. Mother. Mom diagnosed at age 53; recurrence at 61 - double mastectomy done Cervical Cancer Status:Active Comments:Mother. Diabetes Mellitus Type II Status:Active Commen ts:Maternal Grandmother. Paternal Grandmother. Fibromyalgia Status:Active Comments:Mother. Hypertension Status:Active Comments:Father. mom- fibrocycstic breast disease Status:Active mom- hemangioma, liver, spin e cancer Status:Active mom- narcolepsy Status:Active Ovarian Cancer Status:Active Comments:Mother. arthritis Status:Active Comments:Mother. grandmother, aunt Breast Cancer Status:Active Comments:Paterna l Grandmother. Mother. Mom diagnosed at age 53; recurrence at 61 - double mastectomy done Cervical Cancer Status:Active Comments:Mother. Diabetes Mellitus Type II Status:Active Commen ts:Maternal Grandmother. Paternal Grandmother. Fibromyalgia Status:Active Comments:Mother. Hypertension Status:Active Comments:Father. mom- fibrocycstic breast disease Status:Active mom- hemangioma, liver, spin e cancer Status:Active mom- narcolepsy Status:Active Ovarian Cancer Status:Active Comments:Mother. arthritis Status:Active Comments:Mother. grandmother, aunt Breast Cancer Status:Active Comments:Libertyna l Grandmother. Mother. Mom diagnosed at age 53; recurrence at 61 - double mastectomy done Cervical Cancer Status:Active Comments:Mother. Diabetes Mellitus Type II Status:Active Commen ts:Maternal Grandmother. Paternal Grandmother. Fibromyalgia Status:Active Comments:Mother. Hypertension Status:Active Comments:Father. mom- fibrocycstic breast disease Status:Active mom- hemangioma, liver, spin e cancer Status:Active mom- narcolepsy Status:Active Ovarian Cancer Status:Active Comments:Mother. arthritis Status:Active Comments:Mother. grandmother, aunt Breast Cancer Status:Active Comments:Paterna l Grandmother. Mother. Mom diagnosed at age 53; recurrence at 61 - double mastectomy done Cervical Cancer Status:Active Comments:Mother. Diabetes Mellitus Type II Status:Active Commen ts:Maternal Grandmother. Paternal Grandmother. Fibromyalgia Status:Active Comments:Mother. Hypertension Status:Active Comments:Father. mom- fibrocycstic breast disease Status:Active mom- hemangioma, liver, spin e cancer Status:Active mom- narcolepsy Status:Active Ovarian Cancer Status:Active Comments:Mother. arthritis Status:Active Comments:Mother. grandmother, aunt Breast Cancer Status:Active Comments:Paterna l Grandmother. Mother. Mom diagnosed at age 53 Diabetes Mellitus Type II Status:Active Commen ts:Maternal Grandmother. Paternal Grandmother. Fibromyalgia Status:Active Comments:Mother. Hypertension Status:Active Comments:Father. mom- fibrocycstic breast disease Status:Active mom- hemangioma, liver, spin e cancer Status:Active mom- narcolepsy Status:Active Ovarian Cancer Status:Active Comments:Mother. arthritis Status:Active Comments:Mother. grandmother, aunt Breast Cancer Status:Active Comments:Paterna l Grandmother. Mother. Mom diagnosed at age 53; recurrence at 61 - double mastectomy done Cervical Cancer Status:Active Comments:Mother. Diabetes Mellitus Type II Status:Active Commen ts:Maternal Grandmother. Paternal Grandmother. Fibromyalgia Status:Active Comments:Mother. Hypertension Status:Active Comments:Father. mom- fibrocycstic breast disease Status:Active mom- hemangioma, liver, spin e cancer Status:Active mom- narcolepsy Status:Active Ovarian Cancer Status:Active Comments:Mother. arthritis Status:Active Comments:Mother. grandmother, aunt Breast Cancer Status:Active Comments:Paterna l Grandmother. Mother. Mom diagnosed at age 53; recurrence at 61 - double mastectomy done Cervical Cancer Status:Active Comments:Mother. Diabetes Mellitus Type II Status:Active Commen ts:Maternal Grandmother. Paternal Grandmother. Fibromyalgia Status:Active Comments:Mother. Hypertension Status:Active Comments:Father. mom- fibrocycstic breast disease Status:Active mom- hemangioma, liver, spin e cancer Status:Active mom- narcolepsy Status:Active Ovarian Cancer Status:Active Comments:Mother. arthritis Status:Active Comments:Mother. grandmother, aunt Breast Cancer Status:Active Comments:[place] Grandmother. Mother. Mom diagnosed at age 53; recurrence at 61 - double mastectomy done Cervical Cancer Status:Active Comments:Mother. Diabetes Mellitus Type II Status:Active Commen ts:Maternal Grandmother. Paternal Grandmother. Fibromyalgia Status:Active Comments:Mother. Hypertension Status:Active Comments:Father. mom- fibrocycstic breast disease Status:Active mom- hemangioma, liver, spin e cancer Status:Active mom- narcolepsy Status:Active Ovarian Cancer Status:Active Comments:Mother. arthritis Status:Active Comments:Mother. grandmother, aunt Breast Cancer Status:Active Comments:Paterna l Grandmother. Mother. Mom diagnosed at age 53; recurrence at 61 - double mastectomy done Cervical Cancer Status:Active Comments:Mother. Diabetes Mellitus Type II Status:Active Commen ts:Maternal Grandmother. Paternal Grandmother. Fibromyalgia Status:Active Comments:Mother. Hypertension Status:Active Comments:Father. mom- fibrocycstic breast disease Status:Active mom- hemangioma, liver, spin e cancer Status:Active mom- narcolepsy Status:Active Ovarian Cancer Status:Active Comments:Mother. arthritis Status:Active Comments:Mother. grandmother, aunt Breast Cancer Status:Active Comments:Paterna l Grandmother. Mother. Mom diagnosed at age 53; recurrence at 61 - double mastectomy done Cervical Cancer Status:Active Comments:Mother. Diabetes Mellitus Type II Status:Active Commen ts:Maternal Grandmother. Paternal Grandmother. Fibromyalgia Status:Active Comments:Mother. Hypertension Status:Active Comments:Father. mom- fibrocycstic breast disease Status:Active mom- hemangioma, liver, spin e cancer Status:Active mom- narcolepsy Status:Active Ovarian Cancer Status:Active Comments:Mother. arthritis Status:Active Comments:Mother. grandmother, aunt Breast Cancer Status:Active Comments:Paterna l Grandmother. Mother. Mom diagnosed at age 53; recurrence at 61 - double mastectomy done Cervical Cancer Status:Active Comments:Mother. Diabetes Mellitus Type II Status:Active Commen ts:Maternal Grandmother. Paternal Grandmother. Fibromyalgia Status:Active Comments:Mother. Hypertension Status:Active Comments:Father. mom- fibrocycstic breast disease Status:Active mom- hemangioma, liver, spin e cancer Status:Active mom- narcolepsy Status:Active Ovarian Cancer Status:Active Comments:Mother. arthritis Status:Active Comments:Mother. grandmother, aunt Breast Cancer Status:Active Comments:[place] Grandmother. Mother. Mom diagnosed at age 53; recurrence at 61 - double mastectomy done Cervical Cancer Status:Active Comments:Mother. Diabetes Mellitus Type II Status:Active Commen ts:Maternal Grandmother. Paternal Grandmother. Fibromyalgia Status:Active Comments:Mother. Hypertension Status:Active Comments:Father. mom- fibrocycstic breast disease Status:Active mom- hemangioma, liver, spin e cancer Status:Active mom- narcolepsy Status:Active Ovarian Cancer Status:Active Comments:Mother. arthritis Status:Active Comments:Mother. grandmother, aunt Breast Cancer Status:Active Comments:Paterna l Grandmother. Mother. Mom diagnosed at age 53; recurrence at 61 - double mastectomy done Diabetes Mellitus Type II Status:Active Commen ts:Maternal Grandmother. Paternal Grandmother. Fibromyalgia Status:Active Comments:Mother. Hypertension Status:Active Comments:Father. mom- fibrocycstic breast disease Status:Active mom- narcolepsy Status:Active Cervical Cancer Status:Inactiveas Comments:Mother. of vulva as well mom- hemangioma, liver, spine cancer Status:Inactiveas Ovarian Cancer Status:Inactiveas Comments:Mother. arthritis Status:Active Comments:Mother. grandmother, aunt Breast Cancer Status:Active Comments:[place] Grandmother. Mother. Mom diagnosed at age 53; recurrence at 61 - double mastectomy done Diabetes Mellitus Type II Status:Active Commen ts:Maternal Grandmother. Paternal Grandmother. Fibromyalgia Status:Active Comments:Mother. Hypertension Status:Active Comments:Father. mom- fibrocycstic breast disease Status:Active mom- narcolepsy Status:Active Cervical Cancer Status:Inactiveas Comments:Mother. of vulva as well mom- hemangioma, liver, spine cancer Status:Inactiveas Ovarian Cancer Status:Inactiveas Comments:Mother. arthritis Status:Active Comments:Mother. grandmother, aunt Breast Cancer Status:Active Comments:[place] Grandmother. Mother. Mom diagnosed at age 53; recurrence at 61 - double mastectomy done Diabetes Mellitus Type II Status:Active Commen ts:Maternal Grandmother. Paternal Grandmother. Fibromyalgia Status:Active Comments:Mother. Hypertension Status:Active Comments:Father. mom- fibrocycstic breast disease Status:Active mom- narcolepsy Status:Active Cervical Cancer Status:Inactiveas Comments:Mother. of vulva as well mom- hemangioma, liver, spine cancer Status:Inactiveas Ovarian Cancer Status:Inactiveas Comments:Mother. arthritis Status:Active Comments:Mother. grandmother, aunt Breast Cancer Status:Active Comments:Abbey zhou Grandmother. Mother. Mom diagnosed at age 53; recurrence at 61 - double mastectomy done Diabetes Mellitus Type II Status:Active Commen ts:Maternal Grandmother. Paternal Grandmother. Fibromyalgia Status:Active Comments:Mother. Hypertension Status:Active Comments:Father. mom- fibrocycstic breast disease Status:Active mom- narcolepsy Status:Active Cervical Cancer Status:Inactiveas Comments:Mother. of vulva as well mom- hemangioma, liver, spine cancer Status:Inactiveas Ovarian Cancer Status:Inactiveas Comments:Mother. arthritis Status:Active Comments:Mother. grandmother, aunt Breast Cancer Status:Active Comments:Abbey zhou Grandmother. Mother. Mom diagnosed at age 53; recurrence at 61 - double mastectomy done Diabetes Mellitus Type II Status:Active Commen ts:Maternal Grandmother. Paternal Grandmother. Fibromyalgia Status:Active Comments:Mother. Hypertension Status:Active Comments:Father. mom- fibrocycstic breast disease Status:Active mom- narcolepsy Status:Active Cervical Cancer Status:Inactiveas Comments:Mother. of vulva as well mom- hemangioma, liver, spine cancer Status:Inactiveas Ovarian Cancer Status:Inactiveas Comments:Mother. arthritis Status:Active Comments:Mother. grandmother, aunt Breast Cancer Status:Active Comments:Abbey zhou Grandmother. Mother. Mom diagnosed at age 53; recurrence at 61 - double mastectomy done Diabetes Mellitus Type II Status:Active Commen ts:Maternal Grandmother. Paternal Grandmother. Fibromyalgia Status:Active Comments:Mother. Hypertension Status:Active Comments:Father. mom- fibrocycstic breast disease Status:Active mom- narcolepsy Status:Active Cervical Cancer Status:Inactiveas Comments:Mother. of vulva as well mom- hemangioma, liver, spine cancer Status:Inactiveas Ovarian Cancer Status:Inactiveas Comments:Mother. Advance Directives No Advanced Directives Records Found Advance Directive Response Recorded Date/ Time Living Will No May 20, 2 023 2:35pm Power of Tissue Specialist No May 20, 2023 2:35pm Advance Directive Response Recorded Date/ Time Living Will No May 20, 2 023 3:35pm Power of Tissue Specialist No May 20, 2023 3:35pm Chief Complaint and Reason for Visit Chief Complaint Consult Reason for Visit Abdominal pain GERD (gastroesophageal reflux disease) Chief Complaint 2 WK FU Reason for Visit Abdominal pain GERD (gastroesophageal reflux disease) Chief Complaint Admit Date Follow up November 08, 2024 8:00 am Additional Source Comments INFORMATION SOURCE (unrecogn ized section and content) DATE CREATED AUTHOR 10/04/2022 [facility] DATE CREATED AUTHOR AUTHOR'S ORGANIZ ATION 10/07/2024 [facility] DATE CREATED AUTHOR AUTHOR'S ORGANIZ ATION 11/16/2024 [facility] Care Teams (unrecognized sec tion and content) Team Status: Active Member Role Status Dates Dr. Geoff Mcleod MD Family Provider Active JAVAN Charles Primary Care Provider Active Team Status: Inactive Member Role Status Dates Dr. Geoff Mcleod MD Primary Care Provider, Referring Provider Active Dr. Toro Nugent DO Attending Provider Active Team Status: Inactive Member Role Status Dates JAVAN Charles Primary Care Provider Active Dr. Toro Nugent DO Attending Provider Active Team Status: Active Member Role Status Dates JAVAN Charles Primary Care Provider, Referring Provider Active Dr. Toro Nugent DO Attending Provider, Other Prov ider Active Team Status: Inactive Member Role Status Dates JVAAN Charles Primary Care Provider, Referring Provider Active Dr. Toro Nugent DO Attending Provider Active Team Status: Inactive Member Role Status Dates JAVAN Charles Primary Care Provider Active Start: November 08, 2024 End: November 08, 2024 JAVAN Charles Referring Provider Active Start: November 08, 2024 End: November 08, 2024 Dr. Toro Nugent DO Attending Provider Active Start: November 08, 2024 End: November 08, 2024 Goals (unrecognized section and content) Goals may be documented in a n alternate sectionGoals may be documented in an alternate section FOR RECORDS PERTAINING TO PATIENTS WHO ARE OR HAVE BEEN ENROLLED IN A CHEMICAL DEPENDENCY/SUBSTANCEABUSE PROGRAM, SOME INFORMATION MAY BE OMITTED. This clinical summary was aggregated from multiple sources. Caution should be exercised in using it in the provision of clinical care. This summary normalizes information from multiple sources, and as a consequence, information in this document may materially change the coding, format and clinical context of patient data. In addition, data may be omitted in some cases. CLINICAL DECISIONS SHOULD BE BASED ON THE PRIMARY CLINICAL RECORDS. [facility] provides no warranty or guarantee of the accuracy or completeness of information in this document.
== END 2024-11-18 08:55 | disposition home or self-care (01) ==
PROVIDERS: PCP Physician Assistant; Referring Provider Physician Assistant; Visit Provider Internal Medicine Gastroenterology
PROC: F00ZJWZ Instrumental Swallowing and Oral Function Assessment using Swallowing Equipment (ICD-10-PCS; CPT 43235; principal; 2024-11-18 07:55)
DX: K22.4 Dyskinesia of esophagus (principal)
CPT/HCPCS: 91010